=== PATIENT | female | born 1985 | race Caucasian/White ===

== ENCOUNTER 2017-10-01 23:06 | Observation (INO) | payer OTHER ==
[2017-10-02] MEDS ORDERED: ONDANSETRON 4 MG/2 ML VIAL ONE (00:03)
[2017-10-02] MEDS ORDERED: NA CHLORIDE 0.9% 1,000 ML ONE (00:03)
[2017-10-02 00:35] LABS: Calcium Oxalate Crystals- Ur FEW (NONE SEEN); Urine Bacteria <20 /HPF (<20); Urine Culture Reflex Order REFLEXED; Urine RBC <5 /HPF (NONE SEEN)
[2017-10-02 00:37] LABS: Hematocrit 33.8 % (36.0-45.0); MCH 24.9 pg (27.0-35.0); MCV 77.6 fL (80-100); MPV 8.3 fL (7.6-11.3); RBC Red Blood Cell Count 4.36 M/uL (3.86-4.86)
[2017-10-02 00:38] LABS: Urine Blood TRACE (NEG); Urine Glucose 1+ (NEG); Urine Protein 2+ (NEG); Urine Specific Gravity >1.030 (1.005-1.030); Urine pH 5.5 (5.0-7.0)
[2017-10-02 00:38] LABS: ALT/SGPT 56 U/L (12-78); AST/SGOT 63 U/L (15-37); Albumin 3.6 g/dL (3.4-5.0); Alkaline Phosphatase 113 U/L (45-117); Amylase Level 30 U/L (25-115); BUN Blood Urea Nitrogen 21 mg/dL (7-18); Bicarbonate 30 mmol/L (21-32); Bilirubin Direct < 0.1 mg/dL (0-0.2); Bilirubin Total 0.2 mg/dL (0.2-1.0); Glucose Level 117 mg/dL (74-106); Lipase 51 U/L (73-393); Potassium 4.1 mmol/L (3.5-5.1); Protein, Total 7.8 g/dL (6.4-8.2); Sodium Level 139 mmol/L (136-145)
[2017-10-02 00:59] LABS: Platelet Estimate ADEQ
[2017-10-02 01:00] LABS: Anisocytosis 1+; Blood Morphology Comment NOTED (NOT SEEN); Burr Cells FEW
[2017-10-02] MEDS ORDERED: KETOROLAC 30 MG/ML INJ ONE ×2 (01:00→12:53)
[2017-10-02] MEDS ORDERED: CEFTRIAXONE/SWI 1gm 1 GM/10 ML SYR ONE (01:23)
--- NOTE | 2017-10-02 01:24 | EDPHYS ---
Physician Documentation [facility] Name: Vicenta Vicente Age: 32 yrs Sex: Female : 1985 Arrival Date: 10/01/2017 Time: 23:07 Bed 25 Private MD: Jaya Torres ED Physician Conner Iyer HPI: 10/01 23:45 This 32 yrs old Female presents to ER via Ambulatory with complaints of cp Possible Kidney Stone. 23:45 The patient complains of pain in the right mid back. The pain radiates to the abdomen. cp Onset: The symptoms/episode began/occurred 5 day(s) ago. Associated signs and symptoms: Pertinent positives: nausea, vomiting, Pertinent negatives: diarrhea, fever, headache. Severity of pain: in the emergency department the pain is unchanged despite home interventions. 23:45 The patient has been recently seen by a physician: in [facility], with similar cp presenting complaints, and apparently given a diagnosis of kidney stone and discharged to home. 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 - Social history:: Smoking status: Patient/guardian denies using tobacco, never smoked. - Ebola Screening: : Patient negative for fever greater than or equal to 101.5 degrees Fahrenheit, and additional compatible Ebola Virus Disease symptoms Patient denies exposure to infectious person Patient denies travel to an Ebola-affected area in the 21 days before illness onset. ROS: 23:50 Constitutional: Negative for body aches, chills, fever, poor PO intake. cp 23:50 Eyes: Negative for injury, pain, redness, and discharge. cp 23:50 ENT: Negative for drainage from ear(s), ear pain, sore throat, difficulty swallowing, difficulty handling secretions. 23:50 Cardiovascular: Negative for chest pain, edema. 23:50 Respiratory: Negative for cough, shortness of breath, wheezing. 23:50 Abdomen/GI: Positive for abdominal pain, nausea, vomiting, Negative for diarrhea, constipation. 23:50 Back: Positive for flank pain, on the right. 23:50 : Negative for burning with urination. 23:50 Skin: Negative for cellulitis, rash. 23:50 Neuro: Negative for altered mental status, headache, weakness. 23:50 All other systems are negative. Exam: 23:57 Constitutional: The patient appears in no acute distress, alert, awake, cp non-diaphoretic, non-toxic, well developed, well nourished, uncomfortable. 23:57 Head/Face: Normocephalic, atraumatic. cp 23:57 Eyes: Periorbital structures: appear normal, Conjunctiva: normal, no exudate, no injection, Sclera: no appreciated abnormality, Lids and lashes: appear normal, bilaterally. 23:57 ENT: External ear(s): are unremarkable, Nose: is normal, Mouth: Lips: moist, Oral mucosa: pink and intact, moist, Posterior pharynx: is normal, airway is patent, no erythema, no exudate. 23:57 Chest/axilla: Inspection: normal, Palpation: is normal, no crepitus, no tenderness. 23:57 Cardiovascular: Rate: normal, Rhythm: regular. 23:57 Respiratory: the patient does not display signs of respiratory distress, Respirations: normal, no use of accessory muscles, no retractions, no splinting, no tachypnea, Breath sounds: are clear throughout, no decreased breath sounds, no stridor, no wheezing. 23:57 Abdomen/GI: Inspection: abdomen appears normal, Bowel sounds: active, all quadrants, Palpation: soft, in all quadrants, moderate abdominal tenderness, in the right upper quadrant and right lower quadrant, rebound tenderness, is not appreciated, involuntary guarding, is not appreciated. 23:57 Back: CVA tenderness, is noted on the right. 23:57 Skin: cellulitis, is not appreciated, no rash present. 23:57 Neuro: Orientation: to person, place \T\ time. Mentation: lucid, able to follow commands, Cerebellar function: is grossly normal, Motor: moves all fours, strength is normal, Sensation: no obvious gross deficits. Vital Signs: 23:54 BP 132 / 94; Pulse 62; Pulse Ox 100% on R/A; Weight 47.63 kg; Height 5 ft. 5 in. rv (165.10 cm) (R); 10/02 01:01 BP 125 / 100; Pulse 71; Pulse Ox 99% on R/A; rv 03:06 BP 128 / 77; Pulse 86; Pulse Ox 99% on R/A; rv 10/01 23:54 Body Mass Index 17.47 (47.63 kg, 165.10 cm) rv MDM: 10/01 23:30 Patient medically screened. 10/02 00:00 Differential diagnosis: nephrolithiasis, pyelonephritis, UTI, sepsis. cp 01:21 Data reviewed: vital signs, nurses notes, lab test result(s), radiologic studies, CT cp scan. Physician consultation: Samara Henley MD was called at 01:21, was contacted at 01:21, regarding admission, to the medical/surgical unit. 10/01 23:30 Order name: Urine Microscopic Only; Complete Time: 00:56 cp 10/02 00:57 Interpretation: Normal except: UWBC 5-10. cp 10/01 23:38 Order name: Amylase, Serum; Complete Time: 00:56 cp 10/01 23:38 Order name: Basic Metabolic Panel; Complete Time: 00:56 cp 10/02 00:57 Interpretation: Normal except: GLUC 117; BUN 21; GFR 53. cp 10/01 23:38 Order name: CBC with Diff; Complete Time: 01:10 cp 10/02 01:19 Interpretation: Normal except: HGB 10.9; HCT 33.8; MCV 77.6; MCH 24.9; RDW 20.0. cp 10/01 23:38 Order name: Creatinine for Radiology; Complete Time: 00:56 cp 10/01 23:38 Order name: Hepatic Function; Complete Time: 00:56 cp 10/02 00:57 Interpretation: Normal except: AST 63; GLOB 4.2; A/G 0.9. cp 10/01 23:38 Order name: CT Stone Protocol cp 10/01 23:38 Order name: Lipase; Complete Time: 00:56 cp 10/02 00:57 Interpretation: LIP 51; Reviewed. cp 10/02 00:03 Order name: Urine Dipstick--Ancillary (enter results); Complete Time: 00:56 ms 10/02 00:57 Interpretation: Normal except: UGLUC 1+; UBLD TRACE; UPROT 2+. cp 10/02 00:03 Order name: Urine --Ancillary (enter results); Complete Time: 00:56 ms 10/02 00:37 Order name: Urine Culture EDAK 10/02 00:59 Order name: Manual Differential; Complete Time: 01:10 EDAK 10/01 23:30 Order name: Urine Dipstick-Ancillary (obtain specimen); Complete Time: 00:18 10/01 23:30 Order name: Urine Test (obtain specimen); Complete Time: 00:18 10/01 23:38 Order name: IV Saline Lock; Complete Time: 00:18 10/01 23:38 Order name: Labs collected and sent; Complete Time: 00:18 10/02 01:28 Order name: CONS Physician Consult EDMS Administered Medications: 00:10 Drug: TORadol 30 mg Route: IVP; Site: left antecubital; rv 01:22 Follow up: Response: Pain is unchanged, physician notified rv 00:10 Drug: Zofran 4 mg Route: IVP; Site: left antecubital; rv 01:22 Follow up: Response: No adverse reaction rv 00:10 Drug: NS 0.9% 1000 ml Route: IV; Rate: 1 bolus; Site: left antecubital; rv 03:05 Follow up: IV Status: Completed infusion rv 01:22 Drug: Rocephin 1 grams Route: IV; Rate: calculated rate; Site: left antecubital; rv 03:05 Follow up: Response: No adverse reaction rv 01:44 Drug: Magnesium Sulfate 1 grams Route: IVPB; Infused Over: 1 hrs; Site: left rv antecubital; 03:05 Follow up: Response: No adverse reaction; IV Status: Completed infusion rv 01:44 Drug: fentaNYL (PF) 25 mcg Route: IVP; Site: left antecubital; rv 03:05 Follow up: Response: No adverse reaction; Pain is decreased rv Disposition: 04:19 Co-signature as Attending Physician, Conner Iyer MD. rn Disposition: 10/02/17 01:23 Hospitalization ordered by Samara Henley for Observation. Preliminary diagnosis is Calculus of ureter - Right. - Bed requested for Telemetry/MedSurg (observation). - Status is Observation. bb - Condition is Stable. - Problem is an ongoing problem. - Symptoms are unchanged. UTI on Admission? No Signatures: Dispatcher [employer] EDMS Mell Gomez RN RN kl Lucy Chacko RN RN bb Conner Iyer MD MD rn Page, Corey, PA PA cp Hamzah Fields RN RN rv Corrections: (The following items were deleted from the chart) 00:06 00:04 This 32 yrs old Female presents to ER via Ambulatory with complaints of cp Possible Kidney Stone. cp 02:45 01:23 Hospitalization Ordered by Samara Henley MD for Observation. Preliminary kl diagnosis is Calculus of ureter - Right. Bed requested for Telemetry/MedSurg (observation). Status is Observation. Condition is Stable. Problem is an ongoing problem. Symptoms are unchanged. UTI on Admission? No. cp 02:45 02:45 10/02/2017 01:23 Hospitalization Ordered by Samara Henley MD for Observation. kl Preliminary diagnosis is Calculus of ureter - Right. Bed requested for Telemetry/MedSurg (observation). Status is Observation. Condition is Stable. Problem is an ongoing problem. Symptoms are unchanged. UTI on Admission? No. kl 03:01 02:45 10/02/2017 01:23 Hospitalization Ordered by Samara Henley MD for Observation. bb Preliminary diagnosis is Calculus of ureter - Right. Bed requested for Telemetry/MedSurg (observation). Status is Observation. Condition is Stable. Problem is an ongoing problem. Symptoms are unchanged. UTI on Admission? No. kl
--- NOTE | 2017-10-02 01:24 | ER ---
Nurse's Notes [facility] Name: Vicenta Vicente Age: 32 yrs Sex: Female : 1985 Arrival Date: 10/01/2017 Time: 23:07 Bed 25 Private MD: Jaya Torres Diagnosis: Calculus of ureter-Right Presentation: 10/01 23:49 Presenting complaint: Patient states: "I STARTED FEELING FLANK PAINS SINCE TUESDAY. I rv WENT TO CONSULT LAST TUESDAY AND SINCE THEN THE PAIN HASN'T STOPPED.". Transition of care: patient was not received from another setting of care. Onset of symptoms was September 26, 2017 at 08:00. Risk Assessment: Do you want to hurt yourself or someone else? Patient reports no desire to harm self or others. Initial Sepsis Screen: Does the patient meet any 2 criteria? No. Patient's initial sepsis screen is negative. Does the patient have a suspected source of infection? No. Patient's initial sepsis screen is negative. Care prior to arrival: None. 23:49 Method Of Arrival: Ambulatory rv 23:49 Acuity: JOHN 3 rv Triage Assessment: 23:54 General: Appears in no apparent distress. uncomfortable, Behavior is calm, cooperative. rv Pain: Complains of pain in back Pain currently is 9 out of 10 on a pain scale. GI: Abdomen is flat, non-distended. 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 - Social history:: Smoking status: Patient/guardian denies using tobacco, never smoked. - Ebola Screening: : Patient negative for fever greater than or equal to 101.5 degrees Fahrenheit, and additional compatible Ebola Virus Disease symptoms Patient denies exposure to infectious person Patient denies travel to an Ebola-affected area in the 21 days before illness onset. Screenin:58 Abuse screen: Denies threats or abuse. Denies injuries from another. Nutritional rv screening: No deficits noted. Tuberculosis screening: No symptoms or risk factors identified. Fall Risk None identified. Assessment: 23:56 General: Appears in no apparent distress. comfortable, uncomfortable, Behavior is calm, rv cooperative. Pain: Complains of pain in back Pain currently is 9 out of 10 on a pain scale. Neuro: Level of Consciousness is awake, alert, obeys commands, Oriented to person, place, time, situation. Cardiovascular: Heart tones S1 S2 present. Respiratory: Airway is patent. GI: Bowel sounds present X 4 quads. Abd is soft and non tender. : No signs and/or symptoms were reported regarding the genitourinary system. EENT: No signs and/or symptoms were reported regarding the EENT system. Derm: Skin is intact. 10/02 01:02 Reassessment: Patient appears in no apparent distress at this time. Patient and/or rv family updated on plan of care and expected duration. Pain level reassessed. Patient is alert, oriented x 3, equal unlabored respirations, skin warm/dry/pink. Vital Signs: 10/01 23:54 BP 132 / 94; Pulse 62; Pulse Ox 100% on R/A; Weight 47.63 kg; Height 5 ft. 5 in. rv (165.10 cm) (R); 10/02 01:01 BP 125 / 100; Pulse 71; Pulse Ox 99% on R/A; rv 03:06 BP 128 / 77; Pulse 86; Pulse Ox 99% on R/A; rv 10/01 23:54 Body Mass Index 17.47 (47.63 kg, 165.10 cm) rv ED Course: 10/01 23:07 Patient arrived in ED. es 23:07 Jaya Torres MD is Private Physician. es 23:30 Jaya Kidd PA is PHCP. cp 23:30 Conner Iyer MD is Attending Physician. cp 23:51 Triage completed. rv 23:58 Arm band placed on right wrist. rv 23:58 Patient has correct armband on for positive identification. Bed in low position. Call rv light in reach. Side rails up X 1. Adult w/ patient. Pulse ox on. NIBP on. 10/02 00:10 Inserted saline lock: 20 gauge in left antecubital area, using aseptic technique. rv 00:[address] via stretcher. kw1 00:29 CT Stone Protocol In Process Unspecified. EDMS 00:29 CT completed. Patient tolerated procedure well. Patient moved back from CT. kw1 00:59 Urine Culture Sent. rv 01:22 Samara Henley MD is Hospitalizing Provider. cp 02:52 No provider procedures requiring assistance completed. Patient admitted, IV remains in rv place. intact. Administered Medications: 00:10 Drug: TORadol 30 mg Route: IVP; Site: left antecubital; rv 01:22 Follow up: Response: Pain is unchanged, physician notified rv 00:10 Drug: Zofran 4 mg Route: IVP; Site: left antecubital; rv 01:22 Follow up: Response: No adverse reaction rv 00:10 Drug: NS 0.9% 1000 ml Route: IV; Rate: 1 bolus; Site: left antecubital; rv 03:05 Follow up: IV Status: Completed infusion rv 01:22 Drug: Rocephin 1 grams Route: IV; Rate: calculated rate; Site: left antecubital; rv 03:05 Follow up: Response: No adverse reaction rv 01:44 Drug: Magnesium Sulfate 1 grams Route: IVPB; Infused Over: 1 hrs; Site: left rv antecubital; 03:05 Follow up: Response: No adverse reaction; IV Status: Completed infusion rv 01:44 Drug: fentaNYL (PF) 25 mcg Route: IVP; Site: left antecubital; rv 03:05 Follow up: Response: No adverse reaction; Pain is decreased rv Outcome: 01:23 Decision to Hospitalize by Provider. cp 02:52 Admitted to Tele accompanied by tech, via wheelchair, room 420, with chart, Report rv called to shey 02:52 Condition: stable 02:52 Instructed on the need for admit. 03:01 Patient left the ED. bb Signatures: Dispatcher [employer] Henny Rose Brenda, RN RN bb Jaya Kidd PA PA cp Wilhelm, Kimberly kw1 Hamzah Fields, FELICIANO RN rv
[2017-10-02] MEDS ORDERED: FENTANYL CITR 100 MCG/2 ML ONE ×2 (01:31→12:53)
[2017-10-02] MEDS ORDERED: Magnesium Sulfate 1gm IVPB 1 GM/50 ML BAG IV ONE (01:42)
--- NOTE | 2017-10-02 02:38 | P.HP ---
Certification for Inpatient Patient admitted to: Observation With expected LOS: <2 Midnights Practitioner: I am a practitioner with admitting privileges, knowledge of patient current condition, hospital course, and medical plan of care. Services: Services provided to patient in accordance with Admission requirements found in Title 42 Section 412.3 of the Code of Federal Regulations Patient History Date of Service: 10/02/17 Reason for admission: hydronephrosis History of Present Illness: Ms Vicente is a 32 years old woman with history of stomach cancer s/p stomach, pancreas and liver lobe removed, came to ED complaining of progressive right flank pain associated with nausea. She denied fever or chills. Her pain was getting worse over the time. She has had this kind of symptoms in the past. Lab work WBC 10.5K. CT abd/pelvis shows moderate to severe right ureteral 7 mm stone. Allergies No Known Allergies Allergy (Verified 04/27/15 10:17) Home medications list reviewed: Yes Home Medications: Acarbose 25 mg PO AC PRN 04/27/15 Imatinib Mesylate [Gleevec] 400 mg PO DAILY 04/27/15 LORazepam [Ativan] 2 mg PO BEDTIME PRN PRN 04/27/15 Methylphenidate HCl [Ritalin] 10 mg PO BID 04/27/15 Ondansetron HCl [Zofran] 8 mg PO Q4H PRN 04/27/15 Promethazine Syrup [Phenergan*] 2.5 ml PO Q4H PRN 04/27/15 - Past Medical/Surgical History Diabetic: No -: hypoglycemic -: gastrointestional stromal tummors. - a type of cancer -: [employer] -: stomach removal. rebuilt as a 'J' pouch -: removal of pancreases, -: lobeectomy of liver -: lung surg -: left broken thumb - Family History Father -: Cancer - Social History Alcohol use: No CD- Drugs: No Place of Residence: Home Review of Systems 10-point ROS is otherwise unremarkable Physical Examination - Physical Exam General: Alert, In no apparent distress HEENT: Atraumatic, PERRLA, Mucous membr. moist/pink, EOMI, Sclerae nonicteric Neck: Supple, 2+ carotid pulse no bruit, No LAD, Without JVD or thyroid abnormality Respiratory: Clear to auscultation bilaterally, Normal air movement Cardiovascular: Regular rate/rhythm, Normal S1 S2 Gastrointestinal: Normal bowel sounds, Tenderness (right lower quadrant) Musculoskeletal: No tenderness Integumentary: No rashes Neurological: Normal speech, Normal strength at 5/5 x4 extr, Normal tone, Normal affect Lymphatics: No axilla or inguinal lymphadenopathy - Studies Laboratory Data (last 24 hrs) 10/02/17 00:10: Creatinine 1.30 10/02/17 00:10: WBC 10.5, Hgb 10.9 L, Hct 33.8 L, Plt Count 351 10/02/17 00:10: Sodium 139, Potassium 4.1, BUN 21 H, Creatinine 1.20, Glucose 117 H, Total Bilirubin 0.2, AST 63 H, ALT 56, Alkaline Phosphatase 113, Amylase 30, Lipase 51 L Assessment and Plan - Problems (Diagnosis) (1) Hydronephrosis Current Visit: Yes Status: Acute Qualifiers: Hydronephrosis type: with renal calculous obstruction Qualified Code(s): N13.2 - Hydronephrosis with renal and ureteral calculous obstruction (2) Ureterolithiasis Current Visit: Yes Status: Acute - Plan The patient will be admitted to the hospital due to right moderate to severe hydronephrosis. She has a 7 mm right obstructing ureteral stone. Dr Allison consulted. Continue symptomatic medication, IV fluids, prophylactic antibiotic. - Advance Directives Does patient have a Living Will: No Does patient have a Durable POA for Healthcare: No - Code Status/Comfort Care Code Status Assessed: Yes Code Status: Full Code
[2017-10-02] MEDS ORDERED: ACETAMINOPHEN 500 MG TAB PO PRN (03:06)
[2017-10-02] MEDS ORDERED: ONDANSETRON 4 MG/2 ML VIAL IV PRN (03:06)
[2017-10-02] MEDS ORDERED: KETOROLAC 30 MG/ML INJ IV PRN (03:06)
[2017-10-02] MEDS: NA CHLORIDE 0.9% 1,000 ML IV SCH ×2 (03:30→13:06)
[2017-10-02] MEDS ORDERED: CEFTRIAXONE/SWI 1gm 1 GM/10 ML SYR IVP SCH (09:00)
[2017-10-02] MEDS ORDERED: CEFTRIAXONE 1 GM/NS 50 ML 1 GM/50 ML BAG IV SCH (09:00)
--- NOTE | 2017-10-02 09:55 | RAD REPORT ---
EXAM DESCRIPTION: CT - Stone Protocol - 10/02/2017 6:41 am CLINICAL HISTORY: Abdominal pain. Flank pain COMPARISON: September 2016 TECHNIQUE: Computed axial tomography of the abdomen pelvis was obtained without oral or IV contrast. Lack of IV and oral contrast limits evaluation of solid organs, bowel, and vessels. Coronal reformat cesia images were obtained and reviewed. .A preliminary report was generated by [email or web address] and reviewed prior to this dictation All CT scans are performed using dose optimization technique as appropriate and may include automated exposure control or mA/KV adjustment according to patient size. FINDINGS: Small bilateral renal calculi are present. Moderate to marked right hydronephrosis and rig ht hydroureter are seen. 7 millimeter calculus Hounsfield unit 1548 spur is present within the mid to distal right ureter A 9 millimeter low-density lesion is present within the dome of the liver without significant change from the prior exam. It has developed since 2013. The left lobe of the liver is prominent Postsurgical changes involve the pancreas and stomach. The spleen has been removed. There is no evidence of diverticulitis. The appendix appears normal. The evaluation of bowel versus potential mass is limited secondary to lack of IV and oral contrast An IUD and tampon are in place IMPRESSION: 7 millimeter calculus mid to distal right ureter resulting in moderate to marked right h ydronephrosis 7 millimeter nonspecific lesion within the dome of the liver
[2017-10-02] MEDS ORDERED: MORPHINE 4 MG/ML SYR IV ONE (11:00)
[2017-10-02] MEDS ORDERED: Ringers Lactate 1,000 ML IV ONE (12:46)
[2017-10-02] MEDS ORDERED: PROPOFOL 200 MG/20 ML VIAL IV ONE (12:52)
[2017-10-02] MEDS ORDERED: LIDOCAINE 1% MPF 5 ML VIAL ONE (12:53)
[2017-10-02] MEDS ORDERED: MIDAZOLAM HCL 2 MG/2 ML INJ ONE (12:53)
[2017-10-02] MEDS ORDERED: MEPERIDINE HCL 50 MG/ML AMP ONE (14:15)
[2017-10-02] MEDS ORDERED: PROMETHAZINE 25 MG/ML VIAL ONE (14:19)
--- NOTE | 2017-10-03 01:28 | OP ---
Surgeon: Kelin Allison MD Anesthesiologist: Dr. Lopez. Preoperative Diagnosis: Right distal ureteral stone, 7 mm; bilateral lower calyx stones in the kidne y. Postoperative Diagnosis: Right distal ureteral stone, 7 mm; bilateral lower calyx stones in the kidn ey; plus impacted right distal stone. Procedure Performed: Cystoscopy with 30 and 70-degree lens, right retrograde pyelogram, insertion of 6-Thai x 28 cm right double-J stent. Anesthesia: General. Ebl: Minimal. Replacement: See record. Path Specimen: None. Complication: Impacted stone. It was very difficult to pass the ureteral catheter by and also the s tent, so we decided to go ahead and culture the urine from the right renal pelvis. There was some ju nky material that came out. Make sure there was no infection. Leave the stent in for at least a wee k to drain, keep on antibiotics for now, and come back another time for possible ESWL versus ureteros copy. Indication: Pleasant 32-year-old female, history of gastric cancer, came in with right distal ureter al stone, renal colic, and a slightly elevated white count. No fevers. She was given all the genera l information, alternatives, and risks. Her plan was to do cystoscopy, right retrograde ureteroscopy , stone basket, and stent placement. Her stone was found to be impacted. She was given all general information, alternatives, and risks prior. After she was taken to the operative suite, placed in a supine position, prepped and draped, cystoscopy was done and 30 and a 70-degree lens did not show any tumors in the bladder or urethra. Retrograde showed a stone just below the inferior iliac bone abou t 7 mm. Dye did get around it, but it was difficult to pass the Bentson wire. We had to use a Trego wire to get by the stone, then we exchanged it for regular Bentson wire. Ureteral catheter was very difficult to pass the stone, it was very impacted, so we decided to place the stent instead of doing ureteroscopy. We will leave the stent in for some passive dilation instead of forcibly doing dilatio n ureteroscopy today. This may be a lot easier in her ureter, unless risk of ureteral stricture in t he future. Also the urine did appear junky, so a culture was sent and we will wait for the final cul ture before proceeding with definitive therapy. Procedure was terminated. She went to recovery room in stable condition. No untoward effects occurred. She can go home later today. I have written pr escription for pain medication, Ultram, Ditropan 10 mg, and Macrobid 50 mg prevention once a day. Sh e is to follow up in the office in a week. HEMALATHA/CHANCE Voice ID: [id number] Report ID: [id number]
--- NOTE | 2017-10-03 08:53 | CON ---
History Of Present Illness: This is a pleasant 32-year-old female who came in with a history of right flank pain. She has a history of stomach cancer, stomach stromal tumor status post resection at [facility], partial pancreatectomy and liver lobe removed. She had flank pain and nausea. CAT scan showed moderate right hydronephrosis with hydroureter down to the right distal ureter with a 7 mm stone in the right distal ureter. Hounsfield units 1500 units. Also showed 2 small stones in the right lower pole measuring 2-3 mm each and a small stone in the left lower pole. She does not have an IUD present also. The patient was admitted overnight for pain control. Allergies: NO KNOWN DRUG ALLERGIES. Home Medication: Acarbose 25 mg p.o. q.a.c., Gleevec, Ativan, Ritalin, Zofran, Phenergan. Past Medical And Surgical History: No diabetes, history of hypoglycemia, gastrointestinal stroma tumor, _ J-pouch, partial removal of pancreas, lobectomy of liver, lung surgery, _. Family History: Father had a history of cancer. Social History: No smoking. No drug use. Resides at home. Review of Systems: Ten-point review of system is otherwise unremarkable. Physical Examination: Vital Signs: 98.26, pulse 70, respirations 20, BP 121/73, saturation 98%. General: Alert, oriented, in no distress. Two family members present in the room, 1 was a lady, another one was a beto. HEENT: Atraumatic, normocephalic. Neck: Supple. Respiratory: Clear. Cardiovascular: Normal S1, S2. Gastrointestinal: Normal bowel sounds. Musculoskeletal: No tenderness. Skin: No rashes. Neurologic: Normal. Lymphatics: Normal. Laboratory Studies: White count 10, H and H 11 and 34, platelet 351. Chemistry shows sodium 139, potassium 4.1, chloride 100, carbon dioxide 20, BUN 21, creatinine 1.2. GFR estimated to be 53. Glucose 117, calcium 9.2. Liver, AST 63, ALT 53. Urine test showed pH 5.5, specific gravity 10/30, nitrate negative, blood trace, white cells 5-10, rbc less than 5. negative. Assessment: A 7 mm stone in the right lower ureter causing discomfort. Plan: Plan is for cystoscopy, balloon dilation of ureter, attempted stone basket possibly, EHL, and insertion of double-J stents. All the general information, alternatives, and risks were given. The patient wishes to proceed. HEMALATHA/CHANCE Voice ID: [id number] Report ID: [id number] MTDD
--- NOTE | 2017-10-03 16:10 | RAD REPORT ---
EXAM DESCRIPTION: RAD - Urethrocystogrphy Retrograde - 10/03/2017 2:03 pm CLINICAL HISTORY: ICD N 20.0 FINDINGS: One fluoroscopic spot image is submitted. Fluoroscopy time 1.4 minutes. The right ureter was cannulated and contrast administered. A right ureteral stent was subsequently pl aced. Exam was performed by Dr. Allison. Please refer to his report for additional findings
== END 2017-10-02 18:31 | disposition home or self-care (01) ==
LOC: ER 23:06 → ERHOLD 10-02 01:25 → 4TH 10-02 02:40
PROVIDERS: ADMIT Internal Medicine; ATTEND Family Medicine
PROC: 0T768DZ Dilation of Right Ureter with Intraluminal Device, Via Natural or Artificial Opening Endoscopic (ICD-10-PCS; principal; 2017-10-02 13:00)
DX: N13.2 Hydronephrosis with renal and ureteral calculous obstruction (principal); Z85.028 Personal history of other malignant neoplasm of stomach; Z85.07 Personal history of malignant neoplasm of pancreas; Z85.05 Personal history of malignant neoplasm of liver
CPT/HCPCS: 36415; 51610; 52332; 74176; 74450; 76377; 80048; 80076; 81003; 81015; 81025; 82150; 83690; 85025; 87086; 87088 ×2; 96361; 96365; 96375; 99285; J0696 ×2; J2175; J2250; J2405 ×2; J2550; J3010 ×2; J3475; J7030 ×2; Q9967

== ENCOUNTER 2017-11-11 19:04 | Emergency (ER) | payer OTHER, SELFPAY ==
[2017-11-11 19:59] LABS: Urine Blood 3+ (NEG); Urine Glucose 2+ (NEG); Urine Protein 2+ (NEG); Urine Specific Gravity 1.025 (1.005-1.030)
[2017-11-11 20:04] LABS: Urine Bacteria <20 /HPF (<20); Urine Culture Reflex Order NOT NEEDED; Urine RBC >50 /HPF (NONE SEEN)
[2017-11-11] MEDS ORDERED: NA CHLORIDE 0.9% 1,000 ML ONE (21:14)
[2017-11-11] MEDS ORDERED: FENTANYL CITR 100 MCG/2 ML ONE (21:14)
[2017-11-11] MEDS ORDERED: CEFTRIAXONE/SWI 1gm 1 GM/10 ML SYR ONE (21:14)
[2017-11-11] MEDS ORDERED: ONDANSETRON 4 MG/2 ML VIAL ONE (21:14)
--- NOTE | 2017-11-11 21:17 | ER ---
Nurse's Notes [facility] Name: Vicenta Vicente Age: 32 yrs Sex: Female : 1985 Arrival Date: 11/11/2017 Time: 19:05 Bed 28 Private MD: Jaya Torres Diagnosis: Hydronephrosis with renal and ureteral calculous obstruction-double j stent on right;Urinary tract infection, site not specified Presentation: 11/11 19:09 Presenting complaint: Patient states: I had a stent placed in my right kidney about a tl2 month ago for a kidney stone and it's really bothering me. Reports urinary frequency and urgency but not producing much urine. Denies fever. Transition of care: patient was not received from another setting of care. Onset of symptoms was November 09, 2017. Risk Assessment: Do you want to hurt yourself or someone else? Patient reports no desire to harm self or others. Initial Sepsis Screen: Does the patient meet any 2 criteria? No. Patient's initial sepsis screen is negative. Does the patient have a suspected source of infection? No. Patient's initial sepsis screen is negative. Care prior to arrival: None. 19:09 Method Of Arrival: Ambulatory tl2 19:09 Acuity: JOHN 3 tl2 Triage Assessment: 19:12 General: Appears in no apparent distress. uncomfortable, Behavior is calm, cooperative, tl2 appropriate for age. Pain: Complains of pain in right flank. 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 - Social history:: Smoking status: Patient/guardian denies using tobacco. - Ebola Screening: : No symptoms or risks identified at this time. - Family history:: not pertinent. Screenin:00 Fall Risk None identified. cr4 23:05 Abuse screen: Denies threats or abuse. Nutritional screening: No deficits noted. cr4 Tuberculosis screening: No symptoms or risk factors identified. Assessment: 20:45 General: Appears uncomfortable, slender, well groomed, Behavior is calm, cooperative, cr4 appropriate for age. Pain: Complains of pain in lower abd Pain does not radiate. Pain currently is 9 out of 10 on a pain scale. Quality of pain is described as aching, Pain began gradually, Is continuous, Aggravated by eating. Neuro: No deficits noted. Denies weakness blurred vision numbness headache. Cardiovascular: No deficits noted. Denies chest pain, fatigue, lightheadedness. Respiratory: No deficits noted. Respiratory effort is even, unlabored. GI: Patient currently denies diarrhea, nausea, vomiting. : Reports urinary frequency, hematuria since yesterday. EENT: No deficits noted. Derm: No deficits noted. Musculoskeletal: No deficits noted. 21:45 Reassessment: Patient and/or family updated on plan of care and expected duration. Pain cr4 level reassessed. attempting to get IV several attempts made, patient tolerated well and was very cooperative.. 22:30 Reassessment: No changes from previously documented assessment. Patient is alert, cr4 oriented x 3, equal unlabored respirations, skin warm/dry/pink. Patient states feeling better. Patient states symptoms have improved. 23:20 Reassessment: Patient and/or family updated on plan of care and expected duration. Pain cr4 level reassessed. Patient is alert, oriented x 3, equal unlabored respirations, skin warm/dry/pink. Patient states feeling better. Vital Signs: 19:12 BP 118 / 79; Pulse 73; Resp 18; Temp 97.6; Pulse Ox 100% on R/A; Weight 48.99 kg; tl2 Height 5 ft. 5 in. (165.10 cm); Pain 9/10; 22:00 BP 131 / 99 RA Sitting (auto/reg); Pulse 77 MON; Resp 19 S; Pulse Ox 99% on R/A; jp3 23:00 BP 130 / 89; Pulse 70; Resp 16; Pulse Ox 100% ; Pain 0/10; cr4 19:12 Body Mass Index 17.97 (48.99 kg, 165.10 cm) tl2 ED Course: 19:05 Patient arrived in ED. es 19:08 Jaya Torres MD is Private Physician. es 19:10 Triage completed. tl2 19:12 Arm band placed on right wrist. tl2 20:31 CT Stone Protocol In Process Unspecified. EDMS 20:37 Jaya Hendricks MD is Attending Physician. maggie 20:37 Urine Culture Sent. jp3 20:55 Patient moved to radiology via wheelchair. sw 20:55 X-ray completed. Patient tolerated procedure well. sw 20:55 Patient moved back from radiology. sw 20:56 Abdomen 1 View (KUB) XRAY In Process Unspecified. EDMS 21:15 Kelin Allison MD is Referral Physician. maggie 21:30 Missed attempt(s): 24 gauge in right hand. forearm. antecubital area. jp3 21:40 Notified ED physician of other unable to get IV after several attemps. cr4 22:00 Patient has correct armband on for positive identification. Side rails up X2. cr4 22:15 Diet: Patient given ice chips. Patient given water. jp3 23:15 IV discontinued, bleeding controlled, No redness/swelling at site. Pressure dressing cr4 applied. 11/12 00:22 No provider procedures requiring assistance completed. cr4 Administered Medications: 11/11 21:35 Not Given (Duplicate Order): Rocephin - (cefTRIAXone) 1 grams IVPB once over 30 mins; maggie (mix in 50 mL NS) 21:46 CANCELLED (Duplicate Order): Rocephin (cefTRIAXone) 1 grams IM once maggie 22:00 Drug: Zofran 4 mg Route: IVP; Site: left antecubital; cr4 22:30 Follow up: Response: No adverse reaction cr4 22:00 Drug: Rocephin - (cefTRIAXone) 1 grams Route: IVPB; Infused Over: 30 mins; Site: left cr4 antecubital; 22:35 Follow up: Response: No adverse reaction cr4 22:01 Drug: NS 0.9% 1000 ml Route: IV; Rate: 1 bolus; Site: left antecubital; cr4 23:05 Follow up: IV Status: Completed infusion; IV Intake: 1000ml cr4 22:01 Drug: fentaNYL (PF) 25 mcg Route: IVP; Site: left antecubital; cr4 22:30 Follow up: Response: Pain is decreased cr4 22:02 Not Given (changed to iv antibiotic): Cipro 500 mg PO once cr4 23:15 Drug: Cipro 500 mg Route: PO; cr4 23:30 Follow up: Response: No adverse reaction cr4 Intake: 23:05 IV: 1000ml; Total: 1000ml. cr4 Outcome: 21:16 Discharge ordered by . maggie 23:36 Patient left the ED. cr4 23:36 Discharged to home ambulatory, with family. cr4 23:36 Condition: stable 23:36 Discharge instructions given to patient, family, Instructed on discharge instructions, follow up and referral plans. medication usage, Demonstrated understanding of instructions, follow-up care, medications, Prescriptions given X 2. Signatures: Dispatcher [employer] Jaya Rivero MD MD cha Salyer, Edna es Ruiz, Claudia RN RN cr4 Jackie Salguero Taylor, RN RN tl2 Sourav Quezada jp3
--- NOTE | 2017-11-11 21:17 | EDPHYS ---
Physician Documentation [facility] Name: Vicenta Vicente Age: 32 yrs Sex: Female : 1985 Arrival Date: 11/11/2017 Time: 19:05 Bed 28 Private MD: Jaya Torres ED Physician Jaya Hendricks HPI: 11/11 21:12 This 32 yrs old Female presents to ER via Ambulatory with complaints of maggie Problem with stent for kidney stone. 21:12 The patient complains of pain in the right mid back and right low back. The pain maggie radiates to the right mid back and right low back. Onset: The symptoms/episode began/occurred 2 day(s) ago. Modifying factors: The symptoms are alleviated by the symptoms are aggravated by nothing. The patient presents with flank pain, urinary symptoms, dysuria, frequency, hematuria, urgency. Onset: The symptoms/episode began/occurred 3 day(s) ago. Modifying factors: The symptoms are alleviated by nothing, the symptoms are aggravated by nothing. Associated signs and symptoms: The patient has no apparent associated signs or symptoms. Associated signs and symptoms: Pertinent positives: nausea. Severity of symptoms: At their worst the symptoms were mild, moderate, in the emergency department the symptoms are unchanged. 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 - Social history:: Smoking status: Patient/guardian denies using tobacco. - Ebola Screening: : No symptoms or risks identified at this time. - Family history:: not pertinent. ROS: 21:12 Constitutional: Negative for fever, chills, and weight loss, Eyes: Negative for injury, maggie pain, redness, and discharge, ENT: Negative for injury, pain, and discharge, Neck: Negative for injury, pain, and swelling, Cardiovascular: Negative for chest pain, palpitations, and edema, Respiratory: Negative for shortness of breath, cough, wheezing, and pleuritic chest pain, Abdomen/GI: Negative for abdominal pain, nausea, vomiting, diarrhea, and constipation, : Negative for injury, bleeding, discharge, and swelling, MS/Extremity: Negative for injury and deformity, Skin: Negative for injury, rash, and discoloration, Neuro: Negative for headache, weakness, numbness, tingling, and seizure, Psych: Negative for depression, anxiety, suicide ideation, homicidal ideation, and hallucinations, Allergy/Immunology: Negative for hives, rash, and allergies, Endocrine: Negative for neck swelling, polydipsia, polyuria, polyphagia, and marked weight changes, Hematologic/Lymphatic: Negative for swollen nodes, abnormal bleeding, and unusual bruising. 21:12 Back: Positive for pain at rest, flank pain, on the right. Exam: 21:12 Constitutional: This is a well developed, well nourished patient who is awake, alert, maggie and in no acute distress. Head/Face: Normocephalic, atraumatic. Eyes: Pupils equal round and reactive to light, extra-ocular motions intact. Lids and lashes normal. Conjunctiva and sclera are non-icteric and not injected. Cornea within normal limits. Periorbital areas with no swelling, redness, or edema. ENT: Nares patent. No nasal discharge, no septal abnormalities noted. Tympanic membranes are normal and external auditory canals are clear. Oropharynx with no redness, swelling, or masses, exudates, or evidence of obstruction, uvula midline. Mucous membranes moist. Neck: Trachea midline, no thyromegaly or masses palpated, and no cervical lymphadenopathy. Supple, full range of motion without nuchal rigidity, or vertebral point tenderness. No Meningismus. Chest/axilla: Normal chest wall appearance and motion. Nontender with no deformity. No lesions are appreciated. Cardiovascular: Regular rate and rhythm with a normal S1 and S2. No gallops, murmurs, or rubs. Normal PMI, no JVD. No pulse deficits. Respiratory: Lungs have equal breath sounds bilaterally, clear to auscultation and percussion. No rales, rhonchi or wheezes noted. No increased work of breathing, no retractions or nasal flaring. Abdomen/GI: Soft, non-tender, with normal bowel sounds. No distension or tympany. No guarding or rebound. No evidence of tenderness throughout. Back: No spinal tenderness. No costovertebral tenderness. Full range of motion. Female : Normal external genitalia. Skin: Warm, dry with normal turgor. Normal color with no rashes, no lesions, and no evidence of cellulitis. MS/ Extremity: Pulses equal, no cyanosis. Neurovascular intact. Full, normal range of motion. Neuro: Awake and alert, GCS 15, oriented to person, place, time, and situation. Cranial nerves II-XII grossly intact. Motor strength 5/5 in all extremities. Sensory grossly intact. Cerebellar exam normal. Normal gait. Psych: Awake, alert, with orientation to person, place and time. Behavior, mood, and affect are within normal limits. Vital Signs: 19:12 BP 118 / 79; Pulse 73; Resp 18; Temp 97.6; Pulse Ox 100% on R/A; Weight 48.99 kg; tl2 Height 5 ft. 5 in. (165.10 cm); Pain 9/10; 22:00 BP 131 / 99 RA Sitting (auto/reg); Pulse 77 MON; Resp 19 S; Pulse Ox 99% on R/A; jp3 23:00 BP 130 / 89; Pulse 70; Resp 16; Pulse Ox 100% ; Pain 0/10; cr4 19:12 Body Mass Index 17.97 (48.99 kg, 165.10 cm) tl2 MDM: 20:39 Patient medically screened. [facility] 21:14 Data reviewed: vital signs, nurses notes, lab test result(s), radiologic studies, CT [facility] scan, plain films. 11/11 19:38 Order name: Urine Culture [facility] 11/11 19:38 Order name: Urine Microscopic Only; Complete Time: 20:22 [facility] 11/11 19:42 Order name: Urine --Ancillary; Complete Time: 20:03 [facility] 11/11 19:42 Order name: Urine Dipstick-Ancillary; Complete Time: 20:03 [facility] 11/11 20:39 Order name: CBC with Diff; Complete Time: 21:45 [facility] 11/11 20:39 Order name: Comprehensive Metabolic Panel [facility] 11/11 19:38 Order name: CT Stone Protocol; Complete Time: 21:45 [facility] 11/11 20:39 Order name: Abdomen 1 View (KUB) XRAY; Complete Time: 21:45 maggie 11/11 21:32 Order name: Manual Differential; Complete Time: 21:45 EDMS 11/11 19:38 Order name: Urine Test (obtain specimen); Complete Time: 20:37 snw 11/11 19:38 Order name: Urine Dipstick-Ancillary (obtain specimen); Complete Time: 20:36 snw Administered Medications: 21:35 Not Given (Duplicate Order): Rocephin - (cefTRIAXone) 1 grams IVPB once over 30 mins; maggie (mix in 50 mL NS) 21:46 CANCELLED (Duplicate Order): Rocephin (cefTRIAXone) 1 grams IM once maggie 22:00 Drug: Zofran 4 mg Route: IVP; Site: left antecubital; cr4 22:30 Follow up: Response: No adverse reaction cr4 22:00 Drug: Rocephin - (cefTRIAXone) 1 grams Route: IVPB; Infused Over: 30 mins; Site: left cr4 antecubital; 22:35 Follow up: Response: No adverse reaction cr4 22:01 Drug: NS 0.9% 1000 ml Route: IV; Rate: 1 bolus; Site: left antecubital; cr4 23:05 Follow up: IV Status: Completed infusion; IV Intake: 1000ml cr4 22:01 Drug: fentaNYL (PF) 25 mcg Route: IVP; Site: left antecubital; cr4 22:30 Follow up: Response: Pain is decreased cr4 22:02 Not Given (changed to iv antibiotic): Cipro 500 mg PO once cr4 23:15 Drug: Cipro 500 mg Route: PO; cr4 23:30 Follow up: Response: No adverse reaction cr4 Disposition: 11/11/17 21:16 Discharged to Home. Impression: Hydronephrosis with renal and ureteral calculous obstruction - double j stent on right, Urinary tract infection, site not specified. - Condition is Stable. - Discharge Instructions: Kidney Stones, Kidney Stones, [id number], Hydronephrosis. - Prescriptions for Cipro 250 mg Oral Tablet - take 1 tablet by ORAL route every 12 hours; 14 tablet. Tylenol- Codeine #3 300-30 mg Oral Tablet - take 2 tablets by ORAL route every 6 hours As needed; 26 tablet. - Medication Reconciliation Form, Thank You Letter, Antibiotic Education, Prescription Opioid Use form. - Follow up: Private Physician; When: 2 - 3 days; Reason: Recheck today's complaints, Continuance of care, Re-evaluation by your physician. Follow up: Kelin Allison MD; When: 2 - 3 days; Reason: Recheck today's complaints, Continuance of care, Re-evaluation by your physician. - Problem is new. - Symptoms have improved. Signatures: Dispatcher [employer] EDJaya Gavin MD MD cha Therrien, Shelly, MANOJ-C FILAMENT TESTER-Azraw Margo Rosa, RN RN cr4 Lalita Asif RN RN tl2 Corrections: (The following items were deleted from the chart) 21:46 21:36 Rocephin (cefTRIAXone) 1 grams IM once [facility]. [facility] 21:47 21:16 11/11/2017 21:16 Discharged to Home. Impression: Hydronephrosis with renal and maggie ureteral calculous obstruction - double j stent on right. Condition is Stable. Forms are Medication Reconciliation Form, Thank You Letter, Antibiotic Education, Prescription Opioid Use. Follow up: Private Physician; When: 2 - 3 days; Reason: Recheck today's complaints, Continuance of care, Re-evaluation by your physician. Follow up: Kelin Allison; When: 2 - 3 days; Reason: Recheck today's complaints, Continuance of care, Re-evaluation by your physician. Problem is new. Symptoms have improved. [facility] 23:36 21:47 11/11/2017 21:16 Discharged to Home. Impression: Hydronephrosis with renal and cr4 ureteral calculous obstruction - double j stent on right; Urinary tract infection, site not specified. Condition is Stable. Discharge Instructions: Kidney Stones, Kidney Stones, [id number], Hydronephrosis. Prescriptions for Cipro 250 mg Oral Tablet - take 1 tablet by ORAL route every 12 hours; 14 tablet, Tylenol-Codeine #3 300-30 mg Oral Tablet - take 2 tablets by ORAL route every 6 hours As needed; 26 tablet. and Forms are Medication Reconciliation Form, Thank You Letter, Antibiotic Education, Prescription Opioid Use. Follow up: Private Physician; When: 2 - 3 days; Reason: Recheck today's complaints, Continuance of care, Re-evaluation by your physician. Follow up: Kelin Allison; When: 2 - 3 days; Reason: Recheck today's complaints, Continuance of care, Re-evaluation by your physician. Problem is new. Symptoms have improved. maggie
[2017-11-11 21:21] LABS: Hematocrit 38.8 % (36.0-45.0); MCH 28.7 pg (27.0-35.0); MCV 88.2 fL (80-100); MPV 8.4 fL (7.6-11.3)
--- NOTE | 2017-11-11 21:36 | RAD REPORT ---
EXAM DESCRIPTION: CT - Stone Protocol - 11/11/2017 8:33 pm CLINICAL HISTORY: Flank pain. PAIN COMPARISON: Stone Protocol dated 10/01/2017Stone Protocol dated 10/01/2017 TECHNIQUE: Axial images were obtained without oral or IV contrast. Lack of contrast limits solid org an and vascular assessment. The [id number] spans the entirety of the system partially obscuring uppermost abdomen and lung bases. Coronal reformatted images were obtained and reviewed. All CT scans are performed using dose optimization technique as appropriate and may include automated exposure control or mA/KV adjustment according to patient size. FINDINGS: The lower lung cardona are clear. Imaged portions of the liver and spleen show no suspicious findings on non-contrast imaging.Small hep atic cyst is present measuring 11 mm in the anterior right lobe. The pancreas and adrenal glands are normal. No pathologic lymphadenopathy in the abdomen or pelvis. Postsurgical changes are present in t he left upper quadrant. A right double-J stent is in place. The proximal aspect is in the renal pelvis superiorly in the dist al aspect is in the bladder. A 7 mm stone is present along the distal portion of the stent at the lev el of the pelvic inlet. Moderate right hydronephrosis is seen. Punctate bilateral nephrolithiasis is present in both kidneys. No bowel obstruction, free air, free fluid or abscess. Moderate fecal material is present in the colo n.IUD is present in the uterus. No significant bony abnormality. IMPRESSION: Right double-J stent is in place with 7 mm stone along the course the stent inferiorly. Moderate right-sided hydronephrosis is noted. Punctate bilateral nephrolithiasis is present.
--- NOTE | 2017-11-11 21:37 | RAD REPORT ---
EXAM DESCRIPTION: RAD - Abdomen 1 View (KUB) - 11/11/2017 9:00 pm CLINICAL HISTORY: ABD PAIN Pain COMPARISON: Abdomen 1 View (KUB) dated 10/06/2017 FINDINGS: The bowel gas pattern is non-obstructive. No evidence of free air or pneumatosis. Right do uble-J stent is noted in expected position. Calcification is seen along the course of the stent at th e level of the pelvic inlet compatible with a ureter stone.
[2017-11-11 21:41] LABS: ALT/SGPT 38 U/L (12-78); AST/SGOT 26 U/L (15-37); Alkaline Phosphatase 115 U/L (45-117); Anisocytosis 3+; BUN Blood Urea Nitrogen 16 mg/dL (7-18); Bicarbonate 31 mmol/L (21-32); Blood Morphology Comment NOTED (NOT SEEN); Glucose Level 96 mg/dL (74-106); Platelet Estimate ADEQ; Potassium 4.2 mmol/L (3.5-5.1); Protein, Total 7.5 g/dL (6.4-8.2); Sodium Level 144 mmol/L (136-145)
[2017-11-11 21:42] LABS: Poikilocytosis 1+; Target Cells 1+
[2017-11-11 21:43] LABS: Burr Cells 1+
[2017-11-11 21:44] LABS: Bilirubin Total < 0.1 mg/dL (0.2-1.0)
[2017-11-11] MEDS ORDERED: CIPROFLOXACIN HCL 500 MG TAB ONE (23:29)
== END 2017-11-11 23:36 | disposition home or self-care (01) ==
LOC: ER 19:04
DX: N13.6 Pyonephrosis (principal)
CPT/HCPCS: 36415; 74018; 74176; 76377; 80053; 81003; 81015; 81025; 85025; 87086; 87088; 96361; 96374; 96375; 99284; J0696; J2405; J3010; J7030

== ENCOUNTER 2017-11-29 09:14 | Day surgery (SDC) | payer OTHER ==
--- NOTE | 2017-11-29 09:20 | RAD REPORT ---
EXAM DESCRIPTION: RAD - Abdomen 1 View (KUB) - 11/29/2017 9:10 am CLINICAL HISTORY: preop Pain COMPARISON: Abdomen 1 View (KUB) dated 11/11/2017; Abdomen 1 View (KUB) dated 10/06/2017 FINDINGS: The bowel gas pattern is non-obstructive. No evidence of free air or pneumatosis. Right do uble-J stent is in place. Small calcification inferior right kidney. No significant bony findings. IUD in the pelvis. IMPRESSION: Double-J stent is in place. Punctate calcifications in the inferior right kidney.
[2017-11-29] MEDS ORDERED: Ringers Lactate 1,000 ML IV ONE ×2 (10:05→12:01)
[2017-11-29] MEDS ORDERED: GENTAMICIN 100 MG/100 ML BAG 100 MG/100 ML BAG IV ONE (10:06)
[2017-11-29] MEDS ORDERED: PROPOFOL 200 MG/20 ML VIAL IV ONE (10:50)
[2017-11-29] MEDS ORDERED: FENTANYL CITR 100 MCG/2 ML ONE (10:51)
[2017-11-29] MEDS ORDERED: MIDAZOLAM HCL 2 MG/2 ML INJ ONE (10:51)
[2017-11-29] MEDS ORDERED: LIDOCAINE 2% MPF 5 ML VIAL ONE (10:51)
[2017-11-29] MEDS ORDERED: ONDANSETRON HCL 40 MG/20 ML VIAL ONE (10:52)
[2017-11-29] MEDS: MEPERIDINE HCL 50 MG/ML AMP ONE ×2 (12:39→12:45)
--- NOTE | 2017-11-29 12:51 | RAD REPORT ---
EXAM DESCRIPTION: RAD - Urography Retrograde - 11/29/2017 12:45 pm CLINICAL HISTORY: STENT COMPARISON: Urethrocystogrphy Retrograde dated 10/02/2017 FINDINGS: Fluoroscopic imaging of the abdomen is submitted from right-sided ureter stent placement. Details of the procedure not available. Total fluoro time: 1 minutes 26 seconds.
[2017-11-29] MEDS ORDERED: KETOROLAC 30 MG/ML INJ ONE (12:53)
== END 2017-11-29 14:07 | disposition home or self-care (01) ==
LOC: OR 09:14
PROVIDERS: ATTEND Urology
PROC: 0T768DZ Dilation of Right Ureter with Intraluminal Device, Via Natural or Artificial Opening Endoscopic (ICD-10-PCS; 2017-11-29)
PROC: 0WHR8YZ Insertion of Other Device into Genitourinary Tract, Via Natural or Artificial Opening Endoscopic (ICD-10-PCS; 2017-11-29)
PROC: 0TF68ZZ Fragmentation in Right Ureter, Via Natural or Artificial Opening Endoscopic (ICD-10-PCS; principal; 2017-11-29 12:00)
DX: N20.1 Calculus of ureter (principal); Z85.028 Personal history of other malignant neoplasm of stomach; Z82.49 Family history of ischemic heart disease and other diseases of the circulatory system
CPT/HCPCS: 74018; 74420; 81025; J1580; J2175; J2250; J2405; J3010; Q9967

== ENCOUNTER 2019-03-12 17:49 | Emergency (ER) | payer OTHER ==
[2019-03-12] MEDS ORDERED: NA CHLORIDE 0.9% 1,000 ML ONE (18:46)
[2019-03-12 18:58] LABS: Urine Bacteria <20 /HPF (<20); Urine Culture Reflex Order NOT NEEDED; Urine Mucus 1+ /HPF (NONE SEEN); Urine RBC >50 /HPF (NONE SEEN)
[2019-03-12 18:58] LABS: Urine Blood 3+ (NEG); Urine Glucose 3+ (NEG); Urine Protein 2+ (NEG); Urine Specific Gravity 1.015 (1.005-1.030); Urine pH 5.5 (5.0-7.0)
[2019-03-12 19:04] LABS: Absolute Lymphocytes (CBC) 1.4 K/uL (0.7-4.9); Basophils % 0.9 % (0-1.3); Hematocrit 39.4 % (36.0-45.0); MPV 8.7 fL (7.6-11.3); RBC Red Blood Cell Count 4.28 M/uL (3.86-4.86)
[2019-03-12 19:27] LABS: ALT/SGPT 35 U/L (12-78); AST/SGOT 46 U/L (15-37); Albumin 3.5 g/dL (3.4-5.0); Alkaline Phosphatase 92 U/L (45-117); BUN Blood Urea Nitrogen 15 mg/dL (7-18); Bicarbonate 27 mmol/L (21-32); Bilirubin Direct < 0.1 mg/dL (0-0.2); Bilirubin Total 0.1 mg/dL (0.2-1.0); Glucose Level 237 mg/dL (74-106); Lipase 74 U/L (73-393); Potassium 3.9 mmol/L (3.5-5.1); Protein, Total 6.5 g/dL (6.4-8.2); Sodium Level 140 mmol/L (136-145)
--- NOTE | 2019-03-12 19:32 | RAD REPORT ---
EXAM DESCRIPTION: CT - Stone Protocol - 03/12/2019 7:10 pm CLINICAL HISTORY: Left flank pain COMPARISON: November 24, 2018 CT TECHNIQUE: Axial 5 mm thick images were obtained without oral or IV contrast. The [id number] span s the entirety of the system including uppermost abdomen and lung bases. All CT scans are performed using dose optimization technique as appropriate and may include automated exposure control or mA/KV adjustment according to patient size. FINDINGS: Mild dilatation of the left side pelvis and calices present secondary to a 13 x 9 x 8 mm l eft pelvic calcification at the UPJ. An additional 5 millimeter calcification is present in the lower pole calyx. Distal to the calcification ureter is prominent but not dilated. No other ureteral calcu li seen. The lower pole of the right kidney shows a cluster of calcifications ranging from 2 mm to 6 mm in size. No suspicious renal masses. Isodense masses and pyelonephritis are not excluded on a ston e protocol CT scan. Urinary bladder is mostly contracted. No bladder calculi. Phleboliths are seen al jarrod the pelvic floor. No significant adrenal finding. Uterus and ovaries show no suspicious findings for age. Imaged portions of the liver, spleen and pancreas show no suspicious findings on non-contrast imaging . No gallbladder or biliary tree abnormality identified. Gastric surgical changes are noted. Moderately large stool volume throughout the colon. No hernia, mass or bulky lymphadenopathy noted. No free air, free fluid or inflammatory stranding. No significant bony abnormality. IMPRESSION: Mild dilatation of the left pelvis and calices secondary to a 13 x 9 x 8 mm UPJ calculus . Additional nonobstructing bilateral calyx calculi are present. No acute GI process. Moderate stool volume is present throughout colon. Isodense masses and pyelonephritis are not excluded on stone protocol technique.
--- NOTE | 2019-03-12 20:32 | EDPHYS ---
Physician Documentation [facility] Name: Vicenta Vicente Age: 33 yrs Sex: Female : 1985 Arrival Date: 03/12/2019 Time: 17:53 Bed 30 Private MD: ED Physician Thiago Alicea HPI: 03/12 19:07 This 33 yrs old Female presents to ER via Ambulatory with complaints of Flu pm1 Symptoms. 19:07 The patient or guardian reports flu symptoms. Onset: The symptoms/episode pm1 began/occurred 3 day(s) ago. Severity of symptoms: in the emergency department the symptoms are unchanged. Modifying factors: The symptoms are alleviated by OTC cold preparation, the symptoms are aggravated by nothing. Associated signs and symptoms: Pertinent positives: left flank pain that feels like her prior kidney stones in the past, Pertinent negatives: chest pain, diarrhea, vomiting, shortness of breath. present in the ER with son and sister that have flu-like symptoms. 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 - Social history:: Smoking status: Patient/guardian denies using tobacco. - Ebola Screening: : No symptoms or risks identified at this time. ROS: 19:07 Eyes: Negative for injury, pain, redness, and discharge, ENT: Negative for injury, pm1 pain, and discharge, Neck: Negative for injury, pain, and swelling. 19:07 Cardiovascular: Negative for chest pain, palpitations, and edema, Respiratory: Negative for shortness of breath, cough, wheezing, and pleuritic chest pain, Abdomen/GI: Negative for abdominal pain, nausea, vomiting, diarrhea, and constipation, MS/Extremity: Negative for injury and deformity, Skin: Negative for injury, rash, and discoloration, Neuro: Negative for headache, weakness, numbness, tingling, and seizure. 19:07 Constitutional: Positive for body aches, fever, Negative for poor PO intake. 19:07 Back: Positive for flank pain, on the left, Negative for decreased range of motion, pain with movement. 19:07 : Negative for urinary symptoms. Exam: 19:07 Constitutional: This is a well developed, well nourished patient who is awake, alert, pm1 and in no acute distress. Head/Face: Normocephalic, atraumatic. Eyes: Pupils equal round and reactive to light, extra-ocular motions intact. Lids and lashes normal. Conjunctiva and sclera are non-icteric and not injected. Cornea within normal limits. Periorbital areas with no swelling, redness, or edema. ENT: Nares patent. No nasal discharge, no septal abnormalities noted. Tympanic membranes are normal and external auditory canals are clear. Oropharynx with no redness, swelling, or masses, exudates, or evidence of obstruction, uvula midline. Mucous membranes moist. Neck: Trachea midline, no thyromegaly or masses palpated, and no cervical lymphadenopathy. Supple, full range of motion without nuchal rigidity, or vertebral point tenderness. No Meningismus. Chest/axilla: Normal chest wall appearance and motion. Nontender with no deformity. No lesions are appreciated. Cardiovascular: Regular rate and rhythm with a normal S1 and S2. No gallops, murmurs, or rubs. Normal PMI, no JVD. No pulse deficits. Respiratory: Lungs have equal breath sounds bilaterally, clear to auscultation and percussion. No rales, rhonchi or wheezes noted. No increased work of breathing, no retractions or nasal flaring. Abdomen/GI: Soft, non-tender, with normal bowel sounds. No distension or tympany. No guarding or rebound. No evidence of tenderness throughout. Back: No spinal tenderness. No costovertebral tenderness. Full range of motion. Skin: Warm, dry with normal turgor. Normal color with no rashes, no lesions, and no evidence of cellulitis. MS/ Extremity: Pulses equal, no cyanosis. Neurovascular intact. Full, normal range of motion. 19:07 Neuro: Orientation: is normal, Motor: is normal, moves all fours, Sensation: is normal, no obvious gross deficits, Gait: is steady, at a normal pace, without difficulty. Vital Signs: 18:08 BP 107 / 75; Pulse 79; Resp 16; Temp 98.1; Pulse Ox 97% ; Weight 52.16 kg; Height 5 ft. sv 5 in. (165.10 cm); Pain 4/10; 19:26 BP 106 / 77; Pulse 66; Resp 17; Pulse Ox 100% ; rv 19:53 BP 109 / 78; Pulse 65; Resp 16; Pulse Ox 100% on R/A; rv 20:38 BP 113 / 83; Pulse 68; Resp 17; Pulse Ox 100% on R/A; rv 18:08 Body Mass Index 19.14 (52.16 kg, 165.10 cm) sv MDM: 18:43 Patient medically screened. pm1 20:23 Physician consultation: Kelin Allison MD was called at 20:23, was contacted at 20:23, pm1 regarding consult, patient's condition, and will see patient in office, . Send patient home with pain medications and bring a film of KUB to the office. Patient to lay on left side lying position. 20:23 Counseling: I had a detailed discussion with the patient and/or guardian regarding: the pm1 historical points, exam findings, and any diagnostic results supporting the discharge/admit diagnosis, lab results, radiology results, discussed plan of care by Dr. Allison. Patient denies current pain in the ER and is comfortable going home to follow up with Dr. Allison . 20:29 Data reviewed: vital signs. pm1 03/12 18:23 Order name: Urine Microscopic Only; Complete Time: 19:09 rv 03/12 18:34 Order name: Urine Dipstick--Ancillary (enter results); Complete Time: 19:09 03/12 18:34 Order name: Urine --Ancillary (enter results); Complete Time: 19:09 bd 03/12 18:41 Order name: Flu; Complete Time: 19:38 pm1 03/12 18:41 Order name: Basic Metabolic Panel; Complete Time: 19:38 pm1 03/12 18:41 Order name: CBC with Diff; Complete Time: 19:09 pm1 03/12 18:41 Order name: Creatinine for Radiology; Complete Time: 19:38 pm1 03/12 18:41 Order name: Hepatic Function; Complete Time: 19:38 pm1 03/12 18:41 Order name: Lipase; Complete Time: 19:38 pm1 03/12 18:41 Order name: Strep; Complete Time: 19:38 pm1 03/12 19:07 Order name: Stone Protocol; Complete Time: 19:38 EDMS 03/12 19:24 Order name: Throat Culture EDMS 03/12 20:28 Order name: Abdomen 1 View (KUB) XRAY pm1 03/12 18:23 Order name: Urine Dipstick-Ancillary (obtain specimen); Complete Time: 19:22 rv 03/12 18:23 Order name: Urine Test (obtain specimen); Complete Time: 19:21 rv 03/12 18:41 Order name: IV Saline Lock; Complete Time: 19:13 pm1 03/12 18:41 Order name: Labs collected and sent; Complete Time: 19:14 pm1 Administered Medications: 09:00 Drug: NS 0.9% 1000 ml Route: IV; Rate: 1000 ml; Site: left antecubital; rv 19:52 Follow up: IV Status: Completed infusion; IV Intake: 1000ml rv Disposition: 03/12/19 20:30 Discharged to Home. Impression: Calculus of kidney with calculus of ureter, Influenza due to identified novel influenza A virus. - Condition is Stable. - Discharge Instructions: Kidney Stones, Dietary Guidelines to Help Prevent Kidney Stones. - Prescriptions for Tramadol 50 mg Oral Tablet - take 1 tablet by ORAL route every 8 hours As needed as needed; 20 tablet. - Medication Reconciliation Form, Thank You Letter, Antibiotic Education, Prescription Opioid Use form. - Follow up: Emergency Department; When: As needed; Reason: Worsening of condition. Follow up: Kelin Allison MD; When: 03/15/2019; Reason: Recheck today's complaints, Continuance of care, Re-evaluation by your physician. - Problem is new. - Symptoms have improved. Addendum: 03/14/2019 07:57 Co-signature as Attending Physician, Thiago Alicea MD I agree with the assessment and k dr plan of care. Signatures: Dispatcher [employer] EDKY Dior Nelson, Thiago Wang RN, MD MD kdr Yohannes Curry NP DIRECTOR OF PAYROLL pm1 Ambrosio Lou RN RN mg2 Hamzah Fields RN RN rv Corrections: (The following items were deleted from the chart) 03/12 19:03 18:42 Stone Protocol+CT.RAD.BRZ ordered. EDKY EDMS 20:59 20:30 03/12/2019 20:30 Discharged to Home. Impression: Calculus of kidney with calculus mg2 of ureterInfluenza due to identified novel influenza A virus. Condition is Stable. Forms are Medication Reconciliation Form, Thank You Letter, Antibiotic Education, Prescription Opioid Use. Follow up: Emergency Department; When: As needed; Reason: Worsening of condition. Follow up: Kelin Allison; When: 03/15/2019; Reason: Recheck today's complaints, Continuance of care, Re-evaluation by your physician. Problem is new. Symptoms have improved. pm1
--- NOTE | 2019-03-12 20:32 | ER ---
Nurse's Notes [facility] Name: Vicenta Vicente Age: 33 yrs Sex: Female : 1985 Arrival Date: 03/12/2019 Time: 17:53 Bed 30 Private MD: Diagnosis: Influenza due to identified novel influenza A virus;Calculus of kidney with calculus of ureter Presentation: 03/12 18:05 Presenting complaint: Patient states: chills, body aches, fever Tmax 102.7, neck sv stiffness, productive cough clear sputum, sore throat, left flank pain that now is left abd pain with hematuria started Tuesday. Transition of care: patient was not received from another setting of care. Onset of symptoms was March 10, 2019. Risk Assessment: Do you want to hurt yourself or someone else? Patient reports no desire to harm self or others. Initial Sepsis Screen: Does the patient meet any 2 criteria? No. Patient's initial sepsis screen is negative. Does the patient have a suspected source of infection? No. Patient's initial sepsis screen is negative. Care prior to arrival: None. 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 - Social history:: Smoking status: Patient/guardian denies using tobacco. - Ebola Screening: : No symptoms or risks identified at this time. Screenin:25 Abuse screen: Denies threats or abuse. Denies injuries from another. Nutritional rv screening: No deficits noted. Tuberculosis screening: No symptoms or risk factors identified. Fall Risk None identified. Assessment: 18:30 General: Appears in no apparent distress. comfortable, Behavior is calm, cooperative. rv 18:30 Pain: Complains of pain in throat. Neuro: Level of Consciousness is awake, alert, obeys rv commands, Oriented to person, place, time, situation. Cardiovascular: Patient's skin is warm and dry. Respiratory: Airway is patent. Vital Signs: 18:08 BP 107 / 75; Pulse 79; Resp 16; Temp 98.1; Pulse Ox 97% ; Weight 52.16 kg; Height 5 ft. sv 5 in. (165.10 cm); Pain 4/10; 19:26 BP 106 / 77; Pulse 66; Resp 17; Pulse Ox 100% ; rv 19:53 BP 109 / 78; Pulse 65; Resp 16; Pulse Ox 100% on R/A; rv 20:38 BP 113 / 83; Pulse 68; Resp 17; Pulse Ox 100% on R/A; rv 18:08 Body Mass Index 19.14 (52.16 kg, 165.10 cm) sv ED Course: 17:53 Patient arrived in ED. as 18:07 Triage completed. sv 18:08 Arm band placed on. sv 18:22 Hamzah Fields, FELICIANO is Primary Nurse. rv 18:35 Yohannes Curry NP is PHCP. pm1 18:35 Thiago Alicea MD is Attending Physician. pm1 18:53 Inserted saline lock: 22 gauge in left antecubital area, using aseptic technique. Blood rv collected. 19:11 Stone Protocol In Process Unspecified. EDMS 19:25 Patient has correct armband on for positive identification. Bed in low position. Call rv light in reach. Pulse ox on. NIBP on. 19:52 No provider procedures requiring assistance completed. rv 20:30 Kelin Allison MD is Referral Physician. pm1 20:39 IV discontinued, intact, bleeding controlled, No redness/swelling at site. Pressure rv dressing applied. 20:57 Abdomen 1 View (KUB) XRAY In Process Unspecified. EDMS Administered Medications: 09:00 Drug: NS 0.9% 1000 ml Route: IV; Rate: 1000 ml; Site: left antecubital; rv 19:52 Follow up: IV Status: Completed infusion; IV Intake: 1000ml rv Intake: 19:52 IV: 1000ml; Total: 1000ml. rv Outcome: 20:30 Discharge ordered by . pm1 20:39 Discharged to home ambulatory. rv 20:39 Condition: improved 20:39 Discharge instructions given to patient, Instructed on discharge instructions, follow up and referral plans. medication usage, Demonstrated understanding of instructions, follow-up care, medications, Prescriptions given X 1. 20:59 Patient left the ED. mg2 Signatures: Dispatcher [employer] EDDior Calvert RN RN sv Devika Alvarado as Yohannes Curry, INTEGRATION DIRECTOR INTEGRATION DIRECTOR pm1 Ambrosio Lou RN RN mg2 Hamzah Fields RN RN rv Corrections: (The following items were deleted from the chart) 18:10 18:05 Presenting complaint: Patient states: chills, body aches, fever Tmax 102.7, neck sv stiffness, productive cough clear sputum, sore throat, left flank pain that now is left abd pain with hematuria. sv
[2019-03-12 23:41] VITALS: TEMP 98.1
[2019-03-12 23:42] VITALS: O2SAT 100
[2019-03-12 23:45] VITALS: BP 113/83
--- NOTE | 2019-03-13 12:29 | RAD REPORT ---
EXAM DESCRIPTION: RAD - Abdomen 1 View (KUB) - 03/12/2019 8:52 pm CLINICAL HISTORY: KIDNEY STONES COMPARISON: Abdomen 1 View (KUB) dated 12/05/2017 Due to technical malfunction, dated base with prior imaging studies not available. Reports were avail able and reviewed. FINDINGS: Bowel gas pattern is non-specific. No obstruction, free air or pneumatosis. No acute bone finding. IUD is in place. The 13 millimeter left UPJ calculus is identified lateral to the L1 transverse process. Additional no nobstructing bilateral calyx calculi are present. No bladder calculi. IMPRESSION: Approximately 13 millimeter left UPJ calculus is present matching the CT study. Bilateral nonobstructing calculi.
== END 2019-03-12 20:59 | disposition home or self-care (01) ==
LOC: ER 17:49
DX: N20.2 Calculus of kidney with calculus of ureter (principal); J10.1 Influenza due to other identified influenza virus with other respiratory manifestations
CPT/HCPCS: 96361; 87070; 85025; 80048; 36415; 81025; 80076; 87081; 83690; 87804 ×2; 76377; 74176; 74018; 96360; 99284; J7030; 81003; 81015

== ENCOUNTER 2019-04-10 08:58 | Day surgery (SDC) | payer OTHER ==
--- NOTE | 2019-04-02 09:20 | RAD REPORT ---
EXAM DESCRIPTION: Chang Terrazas And Mo (2 Views)04/02/2019 9:10 am CLINICAL HISTORY: Preop for lithotripsy COMPARISON: 2018 FINDINGS: Bilateral calcified lung masses are mostly unchanged. One within the right lung may have m ildly decreased in size Lungs appear clear of acute infiltrate The heart is normal size
[2019-04-02 09:21] LABS: Absolute Lymphocytes (CBC) 1.4 K/uL (0.7-4.9); Basophils % 0.6 % (0-1.3); Hematocrit 36.4 % (36.0-45.0); Lymphocytes % 15.8 % (15.3-44.8); MPV 8.7 fL (7.6-11.3); RBC Red Blood Cell Count 4.02 M/uL (3.86-4.86)
[2019-04-02 09:22] LABS: Urine Appearance CLOUDY; Urine Bilirubin NEGATIVE (NEG); Urine Blood 3+ (NEG); Urine Color YELLOW; Urine Glucose NEGATIVE (NEG); Urine Protein 1+ (NEG); Urine Urobilinogen 0.2 mg/dL (0.2-1.0); Urine pH 5.5 (5.0-7.0)
[2019-04-02 09:30] LABS: Protime INR 0.95
[2019-04-02 09:35] LABS: Phosphorus 3.7 mg/dL (2.5-4.9); Uric Acid 3.6 mg/dL (2.6-6.0)
[2019-04-02 09:36] LABS: Urine Bacteria <20 /HPF (<20); Urine RBC 20-50 /HPF (NONE SEEN)
[2019-04-02 09:37] LABS: Urine Culture Reflex Order NOT NEEDED; Urine Microscopic Reflex ORDER UMIC; Urine Mucus MOD /HPF (NONE SEEN)
--- NOTE | 2019-04-02 10:22 | EKG ---
Test Date: 2019-04-02 Test Time: 08:45:32 Autocad Electrical Designer: HERNANDO MEASUREMENT RESULTS: Intervals: Rate: 60 AL: 136 QRSD: 82 QT: 442 QTc: 442 [place]: P: 52 AL: 136 QRS: 82 T: 72 INTERPRETIVE STATEMENTS: Normal sinus rhythm Normal ECG Compared to ECG 11/25/2017 13:46:29 Sinus bradycardia no longer present Myocardial infarct finding no longer present Electronically Signed On 04-02-19 10:21:46 MANAGER CREATIVE SERVICES by David Camacho
[~2019-04-10 08:58] MED LIST: FENTANYL CITR 100 MCG/2 ML ONE; LIDOCAINE 2% MPF 5 ML VIAL ONE; MIDAZOLAM HCL 2 MG/2 ML INJ ONE; ONDANSETRON 4 MG/2 ML VIAL ONE; propofoL 200 MG/20 ML VIAL IV ONE
[2019-04-10] MEDS ORDERED: Ringers Lactate 1,000 ML IV ONE (09:21)
[2019-04-10] MEDS ORDERED: propofoL 200 MG/20 ML VIAL IV ONE (10:51)
[2019-04-10] MEDS ORDERED: FENTANYL CITR 100 MCG/2 ML ONE (10:51)
[2019-04-10] MEDS ORDERED: MIDAZOLAM HCL 2 MG/2 ML INJ ONE (10:52)
[2019-04-10] MEDS ORDERED: ONDANSETRON 4 MG/2 ML VIAL ONE (10:52)
[2019-04-10] MEDS ORDERED: LIDOCAINE 2% MPF 5 ML VIAL ONE (10:52)
[2019-04-10] MEDS ORDERED: GLYCOPYRROLATE 0.2 MG/ML SYR ONE (10:55)
[2019-04-10] MEDS ORDERED: NEOSTIGMINE 1 MG/ML -5 ML ONE (10:57)
[2019-04-10] MEDS ORDERED: ROCURONIUM 50 MG/5 ML VIAL IV ONE (10:57)
[2019-04-10] MEDS: GENTAMICIN 80 MG/100 ML BAG 80 MG/100 ML BAG IV ONE ×2 (11:00→11:52)
[2019-04-10] MEDS ORDERED: HYDROMORPHONE HCL 1 MG/ML INJ ONE (13:06)
[2019-04-10] MEDS: HYDROMORPHONE HCL 1 MG/ML INJ ONE ×3 (13:12→13:24)
[2019-04-10] MEDS ORDERED: PROMETHAZINE INJ 25 MG/ML AMP ONE (13:16)
[2019-04-10] MEDS ORDERED: KETOROLAC 30 MG/ML INJ ONE (13:28)
[2019-04-10 16:31] VITALS: O2SAT 100
[2019-04-10 16:37] VITALS: BP 102/61; TEMP 97
== END 2019-04-10 16:00 | disposition home or self-care (01) ==
LOC: OR 08:58
PROVIDERS: ATTEND Urology
DX: N20.0 Calculus of kidney (principal); Q62.39 Other obstructive defects of renal pelvis and ureter; Z90.3 Acquired absence of stomach [part of]; Z91.040 Latex allergy status; Z82.49 Family history of ischemic heart disease and other diseases of the circulatory system
CPT/HCPCS: 93005; 87088; 85025; 80048; 36415; 81025; 84100; 85610; 84550; 85730; 71046; 50590; J2704; J2550; J2250; J3010; J1170 ×2; J2710; J7120; J1580; J2405; 81003; 81015; 87086

== ENCOUNTER 2019-05-08 07:28 | Day surgery (SDC) | payer OTHER ==
[2019-05-07 14:17] LABS: Absolute Lymphocytes (CBC) 2.5 K/uL (0.7-4.9); Basophils % 0.6 % (0-1.3); Hematocrit 41.5 % (36.0-45.0); Lymphocytes % 48.6 % (15.3-44.8); MPV 9.3 fL (7.6-11.3); RBC Red Blood Cell Count 4.56 M/uL (3.86-4.86)
[2019-05-07 14:20] LABS: Protime INR 0.89
[2019-05-07 14:27] LABS: Phosphorus 2.1 mg/dL (2.5-4.9); Potassium 3.9 mmol/L (3.5-5.1)
[2019-05-07 15:39] LABS: Urine Appearance CLEAR; Urine Bilirubin NEGATIVE (NEG); Urine Blood NEGATIVE (NEG); Urine Color YELLOW; Urine Glucose 3+ (NEG); Urine Protein TRACE (NEG); Urine Urobilinogen 0.2 mg/dL (0.2-1.0); Urine pH 7.5 (5.0-7.0)
[2019-05-07 15:40] LABS: Urine Microscopic Reflex ORDER UMIC
[2019-05-07 15:42] LABS: Urine Amorphous Sediment 1+ /HPF (NONE SEEN); Urine Bacteria <20 /HPF (<20); Urine Culture Reflex Order NOT NEEDED; Urine Mucus 2+ /HPF (NONE SEEN)
[2019-05-08] MEDS ORDERED: Ringers Lactate 1,000 ML IV ONE (07:41)
[2019-05-08] MEDS ORDERED: GENTAMICIN 80 MG/100 ML BAG 80 MG/100 ML BAG IV ONE (07:41)
--- NOTE | 2019-05-08 08:44 | RAD REPORT ---
EXAM DESCRIPTION: RAD - Abdomen 1 View (KUB) - 05/08/2019 7:58 am CLINICAL HISTORY: PREOP SAME DAY SURGERY RM 4 Pain COMPARISON: Abdomen 1 View (KUB) dated 04/18/2019; Abdomen 1 View (KUB) dated 03/12/2019; Abdomen 1 V iew (KUB) dated 12/05/2017; Abdomen 1 View (KUB) dated 11/29/2017 FINDINGS: The bowel gas pattern is non-obstructive. No evidence of free air or pneumatosis. Small ca lcification projects along the inferior aspect of the right kidney to the right of the L3 transverse process. Small calcification also seen in the left hemipelvis.
[2019-05-08] MEDS ORDERED: MIDAZOLAM HCL 2 MG/2 ML INJ ONE (09:40)
[2019-05-08] MEDS ORDERED: FENTANYL CITR 100 MCG/2 ML ONE (09:40)
[2019-05-08] MEDS ORDERED: ONDANSETRON 4 MG/2 ML VIAL ONE ×2 (09:40→12:31)
[2019-05-08] MEDS ORDERED: LIDOCAINE 2% MPF 5 ML VIAL ONE (09:41)
[2019-05-08] MEDS ORDERED: propofoL 200 MG/20 ML VIAL IV ONE (09:41)
[2019-05-08] MEDS ORDERED: GLYCOPYRROLATE 0.2 MG/ML SYR ONE (09:56)
[2019-05-08] MEDS ORDERED: MORPHINE 4 MG/ML SYR ONE (11:29)
[2019-05-08] MEDS ORDERED: TRAMADOL HCL 50 MG TAB ONE (12:09)
[2019-05-08 15:02] VITALS: BP 137/70; TEMP 98; O2SAT 97
== END 2019-05-08 13:00 | disposition home or self-care (01) ==
LOC: OR 07:28
PROVIDERS: ATTEND Urology
DX: N20.0 Calculus of kidney (principal); Z91.040 Latex allergy status; Z82.49 Family history of ischemic heart disease and other diseases of the circulatory system
CPT/HCPCS: 87088; 85025; 87086; 80048; 36415; 81025; 84100; 85610; 84550; 85730; 82330; 74018; 50590; J2704; J2250; J3010; J7120; J1580; J2405 ×2; 81003; 81015

== ENCOUNTER 2024-12-23 14:41 | Emergency (ER) | payer OTHER ==
--- OUTSIDE RECORDS SUMMARY | 2024-12-23 14:44 | XMS REPORT | Clinical Summary ---
Author Name Unknown Organization [facility] [place] Address [address] [place] [address] Care Team Providers Care Pulverizer Feeder Name Role Phone Jaya Torres MD Unavailable [phone] Toshia Goetz MD Unavailable Dipak Dsouza MD Unavailable [phone] Toshia Goetz MD Unavailable [phone] Elvia Zapata APRN Unavailable [phone] Paulina Maldonado MD Unavailable [phone] Case Longoria MD Unavailable [phone] Gini Russell MD Unavailable [phone] Anamaria Wall MD Unavailable [phone] Apryl Nelson MD Unavailable [phone] Colin Olivo MD Unavailable Checo Levi MD Unavailable [phone] Owen Alvarado MD Unavailable [phone] Damon Lamas MD Unavailable [email or web address] Radha Larry MD Unavailable Donna Mitchell CHEMIST STEROIDS Unavailable Redd Coello MD Unavailable Pj Maddox MD Unavailable [phone] Ahmet Spear MD Unavailable Elvin Gilbert MD Unavailable [email or web address] Kenji Wild MD Unavailable Rosalinda Bone MD Unavailable [phone] Case Flores MD Unavailable Fox Esteves MD Unavailable [phone] Omar Lynn MD Unavailable [phone] Stephanie Ray CHEMIST STEROIDS Unavailable [email or web address] Jamee Quintanilla PA Unavailable [phone] Pepe Forbes PA Unavailable [phone] Nilton Palomares MD Unavailable Marcell Mixon MD Unavailable Tree Aj MD Unavailable [phone] Quentin Arora MD Unavailable Ghazala Saba APRN Unavailable [facility] MD Unavailable Chandni Bone PA Unavailable Jackelyn Morrow MD Unavailable [phone] Vanessa Prado MD Unavailable Machelle Ruiz PA Unavailable Elvin Gilbert MD Primary Care Provider Pamela [email or web address] Rothman, Ly M Unavailable [email or web address] Joaquin Hamm MD Unavailable Joleen Correa MD Unavailable Andrey Goff MD Unavailable [phone] Dale Briones MD Unavailable Fredo Carey MD Unavailable [phone] Myriam Boo Unavailable [phone] Whit Rangel PA-C Unavailable [phone] Allergies Active Allergy Reactions Criticality Noted Date Comments Latex 12/19/2019 Other reaction(s): Hives/Rash Medications * This document contains information received from the source organization and may not represent a complete record from that organization. magnesium citrate 125 mg cap 0 Active cholecalciferol, vitamin D3, (VITAMIN D3) 2,000 units tab tablet Take 1 tablet (2,000 Units) by mouth daily. Active multivitamin (THERAGRAN) tablet Take 1 tablet by mouth daily. Active zinc gluconate 50 mg tablet Take 1 tablet (50 mg) by mouth daily. Active doxycycline (VIBRAMYCIN) 100 mg tabletIndications: Neoplasm of uncertain behavior of soft tissues of shoulder <Connective and other soft tissue; Other neoplasm of uncertain behavior> Take 1 tablet (100 mg) by mouth twice daily. 60 tablet 3 3 Active IMATinib (Gleevec) 400 mg tabletIndications: Gastrointestinal stromal tumor of small intestine Take 1 tablet (400 mg) by mouth daily. 30 tablet 11 12/21/2023 3:23 PM CDT 4 Active IMATinib (Gleevec) 400 mg tabletIndications: Gastrointestinal stromal tumor of small intestine,Secondar y malignant neoplasm of left lung,Secondary malignant neoplasm of right lung Take 1 tablet (400 mg) by mouth daily. Take dose with a meal and a large glass of water. 30 tablet 11 06/14/2024 10:26 AM CDT 4 Active ondansetron (ZOFRAN-ODT) 8 mg disintegrating tabletIndications: Nausea Dissolve 1 tablet (8 mg) on the tongue every 8 (eight) hours as needed for nausea. 45 tablet 12/21/2023 3:23 PM CDT 4 Active ondansetron (ZOFRAN-ODT) 8 mg disintegrating tabletIndications: Nausea and vomiting Dissolve 1 tablet (8 mg) on the tongue every 8 (eight) hours as needed for nausea. 60 tablet 06/14/2024 10:26 AM CDT 5 Active ondansetron (ZOFRAN-ODT) 8 mg disintegrating tabletIndications: Nausea and vomiting Dissolve 1 tablet (8 mg) on the tongue every 8 (eight) hours as needed for nausea. 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 Restaging in 08/2022 revealed progression and initiated on Gleevec 400 mg daily on 09/10/2022. In the interim, patient underwent IR biopsy of the liver, and liver embolization on 09/14/2022 and 04/01/2023. Currently on Gleevec 400 mg daily Skin is extreme dry. Dry and cracked lips. Nausea - intermittent- Not taking zofran regularly. Irregular BMs. Intermittent diarrhea. Fatigue- improved after taking Vyvanse. Craving for ice. Appetite is fine. Looking for another job now. Was on Metformin and Januvia- CO ed 2 months ago (Last refill for these scripts from 11/2022 per chart review) - because she did not get scripts. S/p resection of CELLULAR FIBROUS HISTIOCYTOMA, MARGINS ARE FREE from back, surgical wound is healing now, getting better per patient . Labs are reviewed, blood sugar 426. Patient is advised to make appointment for IBS possibly with PCP/endocrine. . Refused for referral at [facility]. Patient will continue Gleevec 400 mg daily, restaging in 6 months with MRI of the abdomen and pelvis, CT chest without contrast to follow-up on the lung nodules, and routine labs. Nausea: Zofran is advised 30 mts prior to Gleevec daily Advised to reach us/ if transport assistance is needed Assessment & Plan (10/01/2022 3:07 PM CDT): Vicenta Vicente is a 37 y.o. 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 She returns for follow up and restaging. Patient was seen in the clinic last year, and missed multiple appointments. She is overall doing well, Labs are satisfactory Restaging studies reveal progressive disease. We will request for IR biopsy as soon as possible with Y90, will be emailed to IR team Also discussed restarting on imatinib 400 mg daily. Vicenta Vicente is a 37 y.o. 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 Restaging in 08/2022 revealed progression and initiated on Gleevec 400 mg daily. Started post liver embolization on 09/14/2022. Patient was last seen in the clinic on 08/30/2022, and restaging studies reveal progression. Patient was initiated on Gleevec 400 mg daily, which restarted on 09/10/2022. Advised prophylaxis to be continued while on treatment. Patient has accepted tolerance with therapy. Labs are satisfactory, noted high blood sugar, 263. Patient reported gestational diabetes, and received insulin. No follow-up with endocrine yet. Advised patient to follow-up with endocrine today itself, A1c 11, or go to urgent care for insulin recommendation. Patient will continue Gleevec 400 mg daily, restaging in a month with MRI of the abdomen and pelvis, CT chest without contrast to follow-up on the lung nodules, and routine labs. Patient will also needs to be evaluated by IR after imaging. Assessment & Plan (08/31/2022 6:42 AM CDT): Vicenta Vicente is a 37 y.o. 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 She returns for follow up and restaging. Patient was seen in the clinic last year, and missed multiple appointments. She is overall doing well, Labs are satisfactory Restaging studies reveal progressive disease. We will request for IR biopsy as soon as possible with Y90, will be emailed to IR team Also discussed restarting on imatinib 400 mg daily. Patient is advised to hold imatinib a day before the procedure. Patient will have labs locally every 2 weeks, toxicity check in 1 month She will return to clinic for restaging in 2 months with MRI of the abdomen and pelvis and CT chest without contrast Recurrent ? Skin tag growth over the right shoulder : We will request for dermatology consult Potassium was 5.8 on 08/06/2022 : With unknown etiology, we recommended to repeat the labs on 08/30. But patient did not go for the lab. Advised prophylaxis while on treatment Assessment & Plan (08/25/2020 2:48 PM CDT): Vicenta Vicente is a 35 y.o. 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 She was initially diagnosed in 2000, status post resection of the gastric gist, recurrence in 09/2013 followed by emergency surgery in 12/2013 for GI bleed, started with Gleevec since 09/2013. Patient developed liver lesions in 01/2014 while off of Gleevec. Patient started ipilimumab and imatinib clinical trial, protocol [id number] on 05/15/2014. Most recently patient was on single agent Gleevec 400 mg daily until 09/28/2019. Clinical information and diagnostic information have been reviewed by Dr. Russell and discussed with the patient the following plans were formulated and discussed. She will remain off imatinib for now . We will get a chest x-ray and ultrasound of the liver next week as a baseline. If she gets , patient is advised to notify us the clinic. Assessment & Plan (01/30/2020 11:22 AM BROKE BEATER): Vicenta Vicente is a 34 y.o. 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 She was initially diagnosed in 2000, status post resection of the gastric gist, recurrence in 09/2013 followed by emergency surgery in 12/2013 for GI bleed, started with Gleevec since 09/2013. Patient developed liver lesions in 01/2014 while off of Gleevec. Patient started ipilimumab and imatinib clinical trial, protocol [id number] on 05/15/2014. Most recently patient was on single agent Gleevec 400 mg daily until 09/28/2019. Clinical information and diagnostic information have been reviewed by Dr. Russell and discussed with the patient the following plans were formulated and discussed. She will remain off imatinib for now and will complete restaging with MRI AP + CXR in 4 months. She would like to think about , but as per last note: --- Dr. Russell discussed the nature of high-risk and difficulty in following her disease with imaging. Patient would like to talk with her boyfriend and will come up with a plan. Assessment & Plan (12/19/2019 2:29 PM CDT): Vicenta Vicente is a 34 y.o. 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 She was initially diagnosed in 2000, status post resection of the gastric gist, recurrence in 09/2013 followed by emergency surgery in 12/2013 for GI bleed, started with Gleevec since 09/2013. Patient developed liver lesions in 01/2014 while off of Gleevec. Patient started ipilimumab and imatinib clinical trial, protocol [id number] on 05/15/2014. Most recently patient was on single agent Gleevec 400 mg daily until 09/28/2019. Clinical information and diagnostic information have been reviewed by Dr. Russell and discussed with the patient the following plans were formulated and discussed. --- Dr. Russell discussed the nature of high-risk and difficulty in following her disease with imaging. Patient would like to talk with her boyfriend and will come up with a plan. If patient is staying off therapy, she will need scans every 3 months. We plan to bring her back to clinic in early 01/2020 with scan. We will also request for genetic testing. Encounters Date Type Department Care Team Description 06/14/2024 Orders Only [facility] [address] [place] [address], 9th Floor [address] [place], [place] [id number] Stanley Miller APRN Nausea and vomiting (Primary Dx); Gastrointestinal stromal tumor of small intestine 06/13/2024 Orders Only [facility] [address] [place] [address] Main [facility], 9th [place] [address] Paulina Russ MD Nausea and vomiting 06/13/2024 Refill [facility] [address] [place] [address] Main [facility], 9th Floor [address] [place], [place] [id number] Tasha Sampson PA-C Nausea after 12/24/2023 Immunizations Immunization Administration Dates Next Due Pfizer SARS-CoV-2 Vaccination (Purple Cap) 10/11,09/13/2020 Surgical History Surgery Date Site/Laterality Comments TOTAL GASTRECTOMY W/ DANIEL-EN-Y RECONSTRUCTION 12/25/2013 total gastrectomy with Daniel-en-Y esophagectomy, feeding jejunostomy, en block distal pancreatectomy, and splenectomy, RESECTION MASS PELVIC 03/21/2000 - 03/20/2001 Resection of gastrointestinal stromal tumor LUNG REMOVAL, PARTIAL 03/21/2002 - 03/20/2003 Resection left upper lobe blebs CYSTOSCOPY W/ LASER LITHOTRIPSY 04/21/2019 - 05/19/2019 X 2 Medical History Medical History Date Comments Gastrointestinal stromal tumor 2000 Spontaneous pneumothorax 2002 spontan eous left sided pneumothorax History of gastrointestinal bleed GI Bleed secondary to gastric GIST in 10/01 and 12/02 Stromal tumor of uncertain b ehavior of digestive system GI stromal tumor and chondro ma and Fernando triad Reactive hypoglycemia 07/18/2015 Renal stone Family History Medical History Relation Name Comments Hypertension Father Colon cancer Maternal Grandfather Brain cancer Other Bladder Cancer Paternal Grandfather Relation Name Status Comments Father Alive Half-Sister 1 Alive Half-Sister 2 Alive Half-Sister 3 Alive Half-Sister 4 Alive Maternal Aunt 1 Alive Maternal Aunt 2 Alive Maternal Cousin 1 Alive Maternal Cousin 2 Alive Maternal Grandfather Alive Maternal Grandmother (Age 70-75) Mother (Age 25) d.childbir th complications Other (Age 55) Paternal Aunt Alive Paternal Cousin 1 Alive Paternal Cousin 2 Alive Paternal Grandfather (Age 76) Paternal Grandmother (Age 75-80) d.2006 Paternal Uncle Alive Sister 1 Alive Sister 2 Alive Son Alive Social History Tobacco Use Types Packs/Day Years Used Date Smoking Tobacco: Never Smokeless Tobacco: Never Tobacco Cessation:Counseling Given: Not Answered Alcohol Use Standard Drinks/Week Comments No 0 (1 standard drink = 0.6 oz pur e alcohol) Comments No Sex and Gender Information Value Date Recorded Sex Assigned at Female 07/30/2019 9:00 PM CDT Legal Sex Female 4:36 PM BROKE BEATER Gender Identity Female 07/30/2019 9:00 PM CDT Sexual Orientation Straight 07/30/2019 9: 00 PM CDT Obstetrics History Para Term AB IAB SAB Ectopic Multiple Livin g Live Births 2 1 1 1 Date Outcome GA Total Labor Labor/2nd/3rd Weight Sex Type Anes PTL Dee Dee A1 A5 Name Clin Term Plan of Treatment Health Maintenance Due Date Last Done Comments COVID-19 Vaccine (3 - Pfizer risk series) 11/08/2020 10/11/2020, 09/13/2020 Influenza Vaccine (#1) 2024 Pneumococcal Vaccine Aged Out No long er eligible based on patient's age to complete this topic Insurance DUAL Y [address] [place] [address] DUAL Advance Directives * Full Code (Latest Code Status on File) Date Activated Date Inactivated Comments 11/18/2015 9:45 PM 11/19/2015 5:00 PM Care Teams Pulverizer Feeder Relationship Specialty Start Date End Date Jaya Torres MD PCP - External Primary Care Provider 12/24/13 Toshia Goetz MD [email or web address] PCP - External Referring 07/13/13 Dipak Dsouza MD [facility] [address] PCP - External Follow Up A 07/12/13 Toshia Goetz MD [email or web address] PCP - External Follow Up B 07/13/13 Elvin Gilbert MD [address] [place] [address] [email or web address] PCP - General Cancer Medicine 09/01/15 Elvia Zapata APRN [address] [place] [phone] [email or web address] Nurse Practitioner 05/28/15 Paulina Maldonado MD [address] [place] [phone] [email or web address] Physician 05/28/15 Case Longoria MD [address] [place] [address] [email or web address] Physician 05/28/15 Gini Russell MD [address] [place] [phone] [email or web address] Physician 05/28/15 Anamaria Wall MD [address] [place] [phone] [email or web address] Physician 05/28/15 Apryl Nelson MD [address] [place] [address] [email or web address] Physician 05/28/15 Colin Olivo MD [address] [place] [phone] [email or web address] Physician 05/28/15 Checo Levi MD [address] [place] [phone] [email or web address] Physician 05/28/15 Owen Alvarado MD [address] [place] [address] [email or web address] Physician 05/28/15 Damon Lamas MD [email or web address] Physician 05/28/15 Radha Larry MD [address] [place] [phone] [email or web address] Physician 05/28/15 Donna Mitchell NP [address] [place] [phone] [email or web address] Nurse Practitioner 05/28/15 Redd Coello MD [address] [place] [address] [phone] [email or web address] Physician 05/28/15 Pj Maddox MD [address] [place] [address] [phone] [email or web address] Physician 05/28/15 Ahmet Spear MD [address] [place] [address] [phone] [email or web address] Physician 05/28/15 Elvin Gilbert MD [email or web address] g Physician 05/28/15 Kenji Wild MD [address] [place] [address] [phone] [email or web address] Physician 05/28/15 Rosalinda Bone MD [address] [place] [address] [phone] [email or web address] Physician 05/28/15 Case Flores MD [address] [place] [address] [phone] [email or web address] Physician 05/28/15 Fox Esteves MD [address] [place] [address] [phone] [email or web address] Physician 05/28/15 Omar Lynn MD [address] [place] [phone] [email or web address] Physician 05/28/15 Stephanie Ray NP [email or web address] Nurse Practitioner 05/28/15 Jamee Quintanilla PA [address] [place] [address] 15[address] [email or web address] mathew Physician Loom Technician 05/28/15 Pepe Forbes PA [address] [place] [phone] [email or web address] Physician Loom Technician 05/28/15 Nilton Palomares MD [address] [place] [phone] [email or web address] Physician 05/28/15 Marcell Mixon MD [address] [place] [address] [phone] [email or web address] Physician 05/28/15 Tree Aj MD [address] [place] [phone] [email or web address] Physician 05/28/15 Quentin Arora MD [address] [place] [address] 12[address] [email or web address] Physician 05/28/15 Ghazala Saba APRN [address] [place] [address] [phone] [email or web address] Nurse Practitioner 05/28/15 Humza Resendez MD [address] [place] [address] [phone] [email or web address] Physician 05/28/15 Chandni Bone PA [address] [place] [address] 10275 [email or web address] Physician Loom Technician 05/28/15 Jackelyn Morrow MD [address] [place] [address] [phone] [email or web address] Physician 05/28/15 Vanessa Prado MD [address] [place] [phone] [email or web address] Physician 05/28/15 Machelle Ruiz PA [address] [place] [phone] [email or web address] Physician Loom Technician 05/28/15 Sherri Rothman [address] [place] [address] [phone] [email or web address] Research Coordinator Research 09/24/15 Joaquin Hamm MD [address] [place] [address] 48077 [email or web address] Consulting Physician Orthopedic Surgery 12/16/15 Joleen Correa MD [address] [place] [address] [phone] [email or web address] Consulting Physician Dermatology 10/27/22 Andrey Goff MD [address] [place] [address] [phone] [email or web address] Consulting Physician Infectious Diseases 06/09/17 Dale Briones MD [address] [place] [address] 96196 [email or web address] Consulting Physician Dermatology 01/09/16 Fredo Carey MD [address] [place] [address] [email or web address] Consulting Physician Hematology and Oncology 09/19/17 Myriam Boo PA [address] [place] [address] [email or web address] Physician Loom Technician Radiology 02/18/23 Whit Rangel PA-C [address] [place] [phone] [email or web address] mathew Physician Loom Technician Radiology 09/14/22
--- NOTE | 2024-12-23 15:55 | RAD REPORT ---
EXAM: Chest Single View HISTORY: 39 years Female edema COMPARISON: 10/08/2022 FINDINGS: LUNGS/PLEURA: No pleural effusions or pneumothorax. No pulmonary edema. Large calcified lung nodules CARDIAC/MEDIASTINUM: The cardiac silhouette is within normal limits. UPPER ABDOMEN: No significant abnormality. BONES: No acute abnormality. LINES/TUBES/OTHER: N/A IMPRESSION: No evidence of acute cardiopulmonary disease. Large calcified lung nodules likely reflecting sequela of remote granulomatous disease.
[2024-12-23 16:10] LABS: Hematocrit 29.1 % (36.0-45.0); Hemoglobin 8.8 g/dL (12.0-15.0); MCH 21.1 pg (27.0-35.0); MCHC 30.3 g/dL (32.0-36.0); MCV 69.5 fL (80-100); MPV 7.7 fL (7.6-11.3); Nucleated RBC Absolute Count 0.0 (0-0); Nucleated Red Blood Cells % 0.3 % (0-0); RBC Red Blood Cell Count 4.18 M/uL (3.86-4.86)
[2024-12-23 16:42] LABS: ALT/SGPT 36 U/L (13-56); AST/SGOT 25 U/L (15-37); Albumin 2.8 g/dL (3.4-5.0); Albumin/Globulin Ratio 0.7 (1.1-1.8); Alkaline Phosphatase 157 U/L (45-117); Anion Gap 9.7 mEq/L (5.0-15.0); BUN Blood Urea Nitrogen 16 mg/dL (7-18); C-Reactive Protein 50.10 mg/L (<3.00); Globulin 3.8 g/dL (2.3-3.5); Glucose Level 379 mg/dL (74-106); Magnesium 1.8 mg/dL (1.6-2.4); NT PRO-BNP 311 pg/mL (<125); Potassium 3.7 mEq/L (3.5-5.1); Troponin High Sensitivity 3.6 pg/mL (<58.9)
[2024-12-23 16:52] LABS: Bilirubin Indirect, Calculated 0.0 mg/dL (0.2-0.8)
[2024-12-23 17:08] LABS: Absolute Lymphocytes (CBC) 0.7 K/uL (0.7-4.9)
[2024-12-23 17:12] LABS: White Blood Count 8.50 thou/uL (4.3-10.9)
[2024-12-23 17:15] LABS: Anisocytosis 2+; Blood Morphology Comment NOTED (NOT SEEN); Burr Cells FEW; Hypochromasia 1+; Microcytosis 1+; Ovalocytes SLIGHT; Poikilocytosis 1+; White Blood Cell Scan OK (OK)
[2024-12-23] MEDS ORDERED: CLINDAMYCIN 600MG/D5W 50 ML IV ONE (17:44)
--- NOTE | 2024-12-23 17:53 | RAD REPORT ---
EXAMINATION: US LOWER EXTREMITY VENOUS DOPPLER BILATERAL CLINICAL INDICATION: Female, 39 years old.PAIN TECHNIQUE: Complete bilateral duplex sonography of the lower extremity veins was performed. The exami nation included compression for vein patency, color Doppler imaging and flow augmentation in response to distal compression of the distal external iliac, common femoral, femoral, popliteal, anila jacob, tibial and great saphenous veins. [id number]. COMPARISON: No prior exams FINDINGS: Duplex sonography imaging demonstrates all deep veins examined to be fully compressible with spontane ous, phasic and augmented flow bilaterally. The right and left greater saphenous veins at the level of the popliteal fossa have eccentric thickening along the vessel suh. They are incompletely compre ssible. IMPRESSION: No evidence of deep venous thrombosis seen in either lower extremity. Eccentric filling defects in the greater saphenous veins at the level of the popliteal fossa likely r eflecting chronic superficial venous thrombosis.
--- NOTE | 2024-12-23 17:56 | RAD REPORT ---
EXAM: Lower Extremity Arterial Bilat HISTORY: PAIN COMPARISON: None TECHNIQUE: Multiplanar grayscale and color Doppler images were obtained and a lower extremity arteria l ultrasound. Spectral analysis of the Doppler waveforms were performed. FINDINGS: Right lower extremity: Common femoral artery: Triphasic Superficial femoral artery: Triphasic Popliteal artery: Triphasic Posterior tibial artery: Monophasic Dorsalis pedis artery: Monophasic Left lower extremity: Common femoral artery: Triphasic Superficial femoral artery: Triphasic Popliteal artery: Triphasic Posterior tibial artery: Triphasic Dorsalis pedis artery: Triphasic IMPRESSION: No significant arterial abnormality of the right lower extremity. Monophasic flow in the left posterior tibial and dorsalis pedis arteries likely reflecting at least m oderate stenosis. Triphasic flow in the remaining vessels.
--- NOTE | 2024-12-23 18:19 | EDPHYS ---
Physician Documentation [facility] Name: Vicenta Vicente Age: 39 yrs Sex: Female : 1985 Arrival Date: 12/23/2024 Time: 14:41 Bed 17 Private MD: ED Physician Jaya Hendricks HPI: 12/23 15:25 This 39 yrs old Female presents to ER via Ambulatory with complaints of Leg Swelling - cp BILATERAL. 15:25 The patient presents with pain, that is acute. The complaints affect the left lower leg cp and right lower leg. Onset: The symptoms/episode began/occurred 3 day(s) ago. Associated signs and symptoms: Pertinent positives: erythema, pain, Pertinent negatives numbness. 15:25 Treatment prior to arrival includes: no previous treatment. Severity of symptoms: in cp the emergency department the symptoms are unchanged, despite home interventions. 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 - Infectious Disease History:: Denies. - Social history:: Smoking status: Patient denies any tobacco usage or history of. ROS: 15:30 Constitutional: Negative for body aches, chills, fever, poor PO intake, cp 15:30 Eyes: Negative for injury, pain, redness, and discharge, cp 15:30 Cardiovascular: Negative for chest pain, palpitations, 15:30 Respiratory: Negative for cough, shortness of breath, wheezing, 15:30 Abdomen/GI: Negative for abdominal pain, nausea, vomiting, and diarrhea, 15:30 MS/extremity: Positive for erythema, swelling, of the right lower leg and left lower leg, Negative for injury or acute deformity, decreased range of motion, paresthesias, 15:30 Neuro: Negative for altered mental status, dizziness, headache, numbness, weakness, 15:30 All other systems are negative, Exam: 15:33 Constitutional: The patient appears in no acute distress, alert, awake, cp non-diaphoretic, non-toxic, well developed, well nourished, 15:33 Head/Face: Normocephalic, atraumatic. cp 15:33 Eyes: Periorbital structures: appear normal, Conjunctiva: normal, no exudate, no injection, Sclera: no appreciated abnormality, Lids and lashes: appear normal, bilaterally, 15:33 ENT: External ear(s): are unremarkable, Nose: is normal, Mouth: Lips: moist, Oral mucosa: moist, Posterior pharynx: Airway: no evidence of obstruction, patent, 15:33 Chest/axilla: Inspection: normal, 15:33 Cardiovascular: Rate: normal, Rhythm: regular, 15:33 Respiratory: the patient does not display signs of respiratory distress, Respirations: normal, no use of accessory muscles, no retractions, labored breathing, is not present, Breath sounds: are clear throughout, no decreased breath sounds, no stridor, no wheezing, 15:33 Abdomen/GI: Inspection: scar(s), are noted in the midline, Palpation: abdomen is soft and non-tender, in all quadrants, 15:33 Musculoskeletal/extremity: swelling noted to bilateral lower legs, redness, tenderness to palpation. 15:33 Neuro: Orientation: to person, place \T\ time. Mentation: is normal, Motor: moves all fours, strength is normal, 15:53 ECG was reviewed by the Attending Physician. cp Vital Signs: 15:06 BP 122 / 73; Pulse 89; Resp 18; Temp 97.7(O); Pulse Ox 100% ; Weight 47.63 kg; Height 5 db ft. 5 in. ; 16:00 BP 123 / 88; Pulse 79; Resp 16; Pulse Ox 100% ; me1 17:00 BP 121 / 96; Pulse 81; Resp 18; Pulse Ox 96% ; me1 18:00 BP 129 / 87; Pulse 80; Resp 15; Temp 98.2; Pulse Ox 100% ; me1 15:06 Body Mass Index 17.47 (47.63 kg, 165.1 cm) db MDM: 15:05 Medical Screening Exam initiated cp 18:18 Data reviewed: vital signs, nurses notes, lab test result(s), EKG, radiologic studies, cp plain films, ultrasound. 18:18 Differential diagnosis: dvt, arterial occlusion, sepsis, cellulitis. I considered the cp following discharge prescriptions or medication management in the emergency department Medications were administered in the Emergency Department. See MAR. Independent interpretation of the following test(s) in the Emergency Department EKG: See my EKG interpretation above. Care significantly affected by the following chronic conditions: Diabetes, Cancer. Counseling: I had a detailed discussion with the patient and/or guardian regarding the historical points, exam findings, and any diagnostic results supporting the discharge/admit diagnosis, lab results, radiology results, the need for outpatient follow up, a family practitioner, vascular, to return to the emergency department if symptoms worsen or persist or if there are any questions or concerns that arise at home. Response to treatment: the patient's symptoms have mildly improved after treatment, and as a result, I will discharge patient. 12/23 15:20 Order name: Basic Metabolic Panel; Complete Time: 17:01 cp 12/23 17: Interpretation: Normal except: GLUC 379; CA 8.1. cp 12/23 15:20 Order name: CBC with Diff; Complete Time: 17:24 cp 12/23 17:24 Interpretation: Normal except: HGB 8.8; HCT 29.1; MCV 69.5; MCH 21.1; MCHC 30.3; PLT cp 473; RDW 24.4; LYM% 8.6; MN% 16.8; BASO% 2.5; MNA 1.4. 12/23 15:20 Order name: LFT's; Complete Time: 17:01 cp 12/23 17:02 Interpretation: Normal except: ALK 157; IBILI, CALC 0.0; ALB 2.8; GLOB 3.8; A/G 0.7. cp 12/23 15:20 Order name: Magnesium; Complete Time: 17:01 cp 12/23 15:20 Order name: NT PRO-BNP; Complete Time: 17:01 cp 12/23 15:20 Order name: Troponin HS; Complete Time: 17:01 cp 12/23 15:20 Order name: CRP; Complete Time: 17:01 cp 12/23 17:02 Interpretation: Abnormal: C-REACTIVE PROT 50.10. cp 12/23 15:20 Order name: Lactate w/ 2H reflex if indic.; Complete Time: 17:01 cp 12/23 15:20 Order name: Blood Culture Adult (2) cp 12/23 17:14 Order name: CBC Smear Scan; Complete Time: 17:24 EDMS 12/23 15:20 Order name: XRAY Chest (1 view); Complete Time: 17:01 cp 12/23 15:20 Order name: Lower Extremity Arterial Bilat US; Complete Time: 17:57 cp 12/23 15:20 Order name: Extremity Venous W Compression Bilateral US; Complete Time: 17:57 cp 12/23 18:01 Interpretation: Report reviewed. cp 12/23 15:20 Order name: Cardiac monitoring; Complete Time: 15:50 cp 12/23 15:20 Order name: EKG - Nurse/Tech; Complete Time: 15:50 cp 12/23 15:20 Order name: IV Saline Lock; Complete Time: 15:49 cp 12/23 15:20 Order name: Labs collected and sent; Complete Time: 15:49 cp 12/23 15:20 Order name: O2 Per Protocol; Complete Time: 15:49 cp 12/23 15:20 Order name: O2 Sat Monitoring; Complete Time: 15:49 cp EC:53 Rate is 75 beats/min. Rhythm is regular. NM interval is normal. QRS interval is normal. cp QT interval is normal. T waves are Inverted in leads aVL, aVR. Interpreted by me. Reviewed by me. 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 - Other specified peripheral vascular diseases - Left Posterior Tibial and Dorsalis cp Pedis Arteries(12/23/24 18:20) - Diabetes mellitus due to underlying condition with hyperglycemia cp Followup: cp - With: Private Physician - When: 2 - 3 days - Reason: Recheck today's complaints Discharge Instructions: - Discharge Summary Sheet cp - Cellulitis, Adult cp - Hyperglycemia cp - Peripheral Vascular Disease cp - Blood Glucose Monitoring, Adult cp - Diabetes Mellitus and Nutrition, Adult cp - Aspirin and Your Heart cp - Venous Thromboembolism Prevention cp Forms: - Medication Reconciliation Form cp - Antibiotic Education cp - Prescription Opioid Use cp - Patient Portal Instructions cp - Leadership Thank You Letter cp Prescriptions: - Clindamycin HCl 300 mg Oral Capsule - take 1 capsule ORAL route every 6 hours for 10 days; 40 capsule; Refills: 0, cp Product Selection Permitted Signatures: Dispatcher [employer] EDMS Jaya Kidd PA-C PA-C cp Benton, Danielle, RN RN db Kaur Beltran RN RN me1 Corrections: (The following items were deleted from the chart) 15:20 15:20 BASIC METABOLIC PANEL+C.LAB.BRZ ordered. EDMS EDMS 15:20 15:20 CBC+H.LAB.BRZ ordered. EDMS EDMS 15:20 15:20 HEPATIC FUNCTION+C.LAB.BRZ ordered. EDMS EDMS 15:20 15:20 MAGNESIUM+C.LAB.BRZ ordered. EDMS EDMS 15:20 15:20 PROBNP+C.LAB.BRZ ordered. EDMS EDMS 15:20 15:20 Troponin High Sensitivity+C.LAB.BRZ ordered. EDMS EDMS 15:20 15:20 C-REACTIVE PROTEIN+C.LAB.BRZ ordered. EDMS EDMS 15:20 15:20 LACTATE+C.LAB.BRZ ordered. EDMS EDMS 15:20 15:20 BLOOD CULTURE*+BA.LAB.BRZ ordered. EDMS EDMS 15:21 15:21 Chest Single View+RAD.RAD.BRZ ordered. EDMS EDMS 15:21 15:21 Lower Extremity Arterial Bilat+US.RAD.BRZ ordered. EDMS EDMS 15:21 15:21 Extrem Venous W Compression Xochitl+US.RAD.BRZ ordered. EDMS EDMS 17:14 16:30 Manual Differential ordered. EDMS EDMS 17:24 17:02 Normal except: HGB 8.8; HCT 29.1; MCV 69.5; MCH 21.1; MCHC 30.3; PLT 473; RDW cp 24.4. cp 18:20 18:18 Other specified peripheral vascular diseases cp cp
--- NOTE | 2024-12-23 18:19 | ER ---
Nurse's Notes [facility] Name: Vicenta Vicente Age: 39 yrs Sex: Female : 1985 Arrival Date: 12/23/2024 Time: 14:41 Bed 17 Private MD: Diagnosis: Cellulitis of right lower limb;Cellulitis of left lower limb;Chronic embolism and thrombosis of other specified veins-bilateral Great Saphenous Veins of Lower Extremities;Other specified peripheral vascular diseases-Left Posterior Tibial and Dorsalis Pedis Arteries;Diabetes mellitus due to underlying condition with hyperglycemia Presentation: 12/23 15:06 Chief complaint: Patient states: BILATERAL LOWER LEG SWELLING AND CELLULITIS X 3 DAYS. db Coronavirus screen: Client denies travel out of the [place] in the last 14 days. At this time, the client does not indicate any symptoms associated with coronavirus-19. Ebola Screen: Patient negative for fever greater than or equal to 101.5 degrees Fahrenheit, and additional compatible Ebola Virus Disease symptoms Patient denies exposure to infectious person. Patient denies travel to an Ebola-affected area in the 21 days before illness onset. No symptoms or risks identified at this time. Initial Sepsis Screen: Does the patient meet any 2 criteria? No. Patient's initial sepsis screen is negative. Does the patient have a suspected source of infection? No. Patient's initial sepsis screen is negative. Risk Assessment: Do you want to hurt yourself or someone else? Patient reports no desire to harm self or others. Onset of symptoms was December 20, 2024. 15:06 Method Of Arrival: Ambulatory db 15:06 Acuity: JOHN 3 db Triage Assessment: 15:08 General: Appears in no apparent distress. comfortable, Behavior is calm, cooperative. db Pain: Complains of pain in right leg and left leg. 15:09 Neuro: Level of Consciousness is awake, alert, obeys commands, Oriented to person, db place, time, situation. Respiratory: Airway is patent Respiratory effort is even, unlabored, Respiratory pattern is regular, symmetrical. Derm: Rash noted that is red, on right leg and left leg. 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 - Infectious Disease History:: Denies. - Social history:: Smoking status: Patient denies any tobacco usage or history of. Screenin:15 [facility] ED Fall Risk Assessment (Adult) History of falling in the last 3 months, me1 including since admission No falls in past 3 months (0 pts) Confusion or Disorientation No (0 pts) Intoxicated or Sedated No (0 pts) Impaired Gait No (0 pts) Mobility Assist Device Used No (0 pt) Altered Elimination No (0 pt) Score/Fall Risk Level 0 - 2 = Low Risk Maintained a safe environment, Provided non-skid footwear, Hourly rounding (assess needs \T\ fall precautionary measures) done. Abuse screen: Denies threats or abuse. Nutritional screening: No deficits noted. Tuberculosis screening: No symptoms or risk factors identified. Assessment: 15:15 General: Appears in no apparent distress. well groomed, well developed, well nourished, me1 Behavior is calm, cooperative, appropriate for age, Reports BILATERAL LOWER LEG SWELLING AND CELLULITIS X 3 DAYS. Pain: Denies pain. Neuro: Level of Consciousness is awake, alert, obeys commands, Oriented to person, place, time, situation, Appropriate for age. Cardiovascular: Patient's skin is warm and dry. Respiratory: Airway is patent Respiratory effort is even, unlabored, Respiratory pattern is regular, symmetrical. GI: No signs and/or symptoms were reported involving the gastrointestinal system. : No signs and/or symptoms were reported regarding the genitourinary system. EENT: No signs and/or symptoms were reported regarding the EENT system. Derm: Skin is healthy with good turgor, Skin is normal, Wound noted left leg and right leg Wound is red, swollen Reports. Musculoskeletal: Circulation, motion, and sensation intact. Range of motion: intact in all extremities, Swelling present in left leg and right leg. Vital Signs: 15:06 BP 122 / 73; Pulse 89; Resp 18; Temp 97.7(O); Pulse Ox 100% ; Weight 47.63 kg; Height 5 db ft. 5 in. ; 16:00 BP 123 / 88; Pulse 79; Resp 16; Pulse Ox 100% ; me1 17:00 BP 121 / 96; Pulse 81; Resp 18; Pulse Ox 96% ; me1 18:00 BP 129 / 87; Pulse 80; Resp 15; Temp 98.2; Pulse Ox 100% ; me1 15:06 Body Mass Index 17.47 (47.63 kg, 165.1 cm) db ED Course: 14:44 Patient arrived in ED. sj2 14:50 [facility] cp 14:50 Jaya Hendricks MD is Attending Physician. cp 15:08 Triage completed. db 15:09 Arm band placed on right wrist. Patient placed in waiting room. db 15:15 Kaur Beltran, RN is Primary Nurse. me1 15:15 Patient has correct armband on for positive identification. Bed in low position. Call me1 light in reach. Side rails up X2. Provided Education on: POC. Verbalized understanding.. Client placed on continuous cardiac and pulse oximetry monitoring. NIBP monitoring applied. nuclear monitoring technician on. Pulse ox on. NIBP on. 15:15 No provider procedures requiring assistance completed. me1 15:44 Initial lab(s) drawn, by ca, sent to lab. First set of blood cultures drawn by ca. me1 15:46 XRAY Chest (1 view) In Process Unspecified. EDMS 15:48 Inserted saline lock: 22 gauge in left antecubital area, using aseptic technique. me1 15:48 Blood Culture Adult (2) Sent. me1 15:48 Lactate w/ 2H reflex if indic. Sent. me1 15:49 CRP Sent. me1 15:49 Basic Metabolic Panel Sent. me1 15:49 CBC with Diff Sent. me1 15:49 LFT's Sent. me1 15:49 Magnesium Sent. me1 15:49 NT PRO-BNP Sent. me1 15:49 Troponin HS Sent. me1 15:50 EKG done, by cardiac catheterization technologist. reviewed by Jaya Kidd PA-C. ts3 15:53 Second set of blood cultures drawn by ca. me1 17:28 Lower Extremity Arterial Bilat US In Process Unspecified. EDMS 17:28 Extremity Venous W Compression Bilateral US In Process Unspecified. EDMS 18:33 IV discontinued, intact, bleeding controlled, No redness/swelling at site. Pressure me1 dressing applied. Administered Medications: 17:45 Drug: Clindamycin IVPB 600 mg IVPB once over 30 mins; (mix in 50 mL) Route: IVPB; me1 Infused Over: 30 mins; Site: left antecubital; 18:22 Follow up: Response: No adverse reaction; IV Status: Completed infusion; IV Intake: [id number] Medication: 15:15 VIS not applicable for this client. me1 Intake: 18:22 IV: 50ml; Total: 50ml. me1 Outcome: 18:18 Discharge ordered by MD. cp 18:33 Discharged to home ambulatory, me1 18:33 Condition: stable 18:33 Discharge instructions given to patient, family, Instructed on discharge instructions, follow up and referral plans. medication usage, Demonstrated understanding of instructions, follow-up care, medications, Prescriptions given X 1, 18:34 Patient left the ED. me1 Signatures: Dispatcher [employer] EDMS Jaya Kidd, PA-C PA-C Julienne Osborn, RN RN db Kaur Beltran RN RN me1 Rupa Whitaker sj2 Ashwini Chandler ts3 Corrections: (The following items were deleted from the chart) 15:09 15:08 General: Appears in no apparent distress. comfortable, Behavior is calm, db cooperative, db 16:42 15:06 Chief complaint: Patient states: BILATERAL LOWER LEG SWELLING AND CELLULITIS X 3 me1 DAYS db
[2024-12-23 19:15] VITALS: BP 129/87; TEMP 98.2; O2SAT 100
== END 2024-12-23 18:34 | disposition home or self-care (01) ==
LOC: ER 14:41
DX: L03.116 Cellulitis of left lower limb (principal); L03.115 Cellulitis of right lower limb; I82.493 Acute embolism and thrombosis of other specified deep vein of lower extremity, bilateral; I73.89 Other specified peripheral vascular diseases; E08.65 Diabetes mellitus due to underlying condition with hyperglycemia
CPT/HCPCS: 36415; 71045; 80048; 80076; 83605; 83735; 83880; 84484; 85025; 86140; 87040; 93005; 93925; 93970; 96365; 99285

== ENCOUNTER 2025-01-04 17:13 | Emergency (ER) | payer OTHER ==
--- OUTSIDE RECORDS SUMMARY | 2025-01-04 17:18 | XMS REPORT | Clinical Summary ---
Author Name Unknown Organization [facility] Address [address] [place] [address] Care Team Providers Care Truckload Checker Name Role Phone Jaya Torres MD Unavailable [phone] Toshia Goetz MD Unavailable [phone] Dipak Dsouza MD Unavailable [phone] Toshia Goetz MD Unavailable [phone] Elvia Zapata APRN Unavailable [phone] Paulina Maldonado MD Unavailable [phone] Case Longoria MD Unavailable [phone] Gini Russell MD Unavailable [phone] Anamaria Wall MD Unavailable [phone] Apryl Nelson MD Unavailable [phone] Colin Olivo MD Unavailable Checo Levi MD Unavailable [phone] Owen Alvarado MD Unavailable [phone] Damon Lamas MD Unavailable [email or web address] Radha Larry MD Unavailable Donna Mitchell WOOD BARREL RECONDITIONER Unavailable Redd Coello MD Unavailable Pj Maddox MD Unavailable [phone] Ahmet Spear MD Unavailable Elvin Gilbert MD Unavailable [email or web address] Kenji Wild MD Unavailable Rosalinda Bone MD Unavailable Case Flores MD Unavailable Fox Esteves MD Unavailable [phone] Omar Lynn MD Unavailable [phone] Stephanie Ray WOOD BARREL RECONDITIONER Unavailable [email or web address] Jamee Quintanilla PA Unavailable Pepe Forbes PA Unavailable [phone] Nilton Palomares MD Unavailable Marcell Mixon MD Unavailable [phone] Tree Aj MD Unavailable Quentin Arora MD Unavailable Ghazala Saba APRN Unavailable [phone] [facility] bal[facility]zar MD Unavailable Chandni Bone PA Unavailable Jackelyn Morrow MD Unavailable [phone] Vanessa Prado MD Unavailable Machelle Ruiz PA Unavailable [phone] Elvin Gilbert MD Primary Care Provider [email or web address] Rothman, Ly M Unavailable [email or web address] Joaquin Hamm MD Unavailable Joleen Correa MD Unavailable Andrey Goff MD Unavailable [phone] Dale Briones MD Unavailable Fredo Carey MD Unavailable [phone] Myriam Boo Unavailable [phone] Whit Rangel PA-C Unavailable [phone] Allergies Active Allergy Reactions Criticality Noted Date [...] job now. Was on Metformin and Januvia- NC ed 2 months ago (Last refill for [...] with PCP/endocrine. . Refused for referral at [facility]. Patient will continue Gleevec 400 mg daily, [...] Vicente is a 35 y.o. 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 She was initially diagnosed in 2000, status post resection of the gastric gist, recurrence in 09/2013 followed by emergency surgery in 12/2013 for GI bleed, started with Gleevec since 09/2013. Patient developed liver lesions in 01/2014 while off of Gleevec. Patient started ipilimumab and imatinib clinical trial, protocol [id number] on 05/15/2014. Most recently patient was on [...] clinic. 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 She was initially diagnosed in 2000, status post resection of the gastric gist, recurrence in 09/2013 followed by emergency surgery in 12/2013 for GI bleed, started with Gleevec since 09/2013. Patient developed liver lesions in 01/2014 while off of Gleevec. Patient started ipilimumab and imatinib clinical trial, protocol [id number] on 05/15/2014. Most recently patient was on [...] Vicente is a 34 y.o. 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 She was initially diagnosed in 2000, status post resection of the gastric gist, recurrence in 09/2013 followed by emergency surgery in 12/2013 for GI bleed, started with Gleevec since 09/2013. Patient developed liver lesions in 01/2014 while off of Gleevec. Patient started ipilimumab and imatinib clinical trial, protocol [id number] on 05/15/2014. Most recently patient was on [...] Orders Only [facility] [address] [place] [address], [address]th [address] [place], [place] [id number] Stanley Miller APRN Nausea and vomiting (Primary Dx); Gastrointestinal stromal tumor of small intestine 06/13/2024 Orders Only [facility] [address] [place] [address] Main [facility], 9th [place] [address] Paulina Russ MD Nausea and vomiting 06/13/2024 Refill [facility] [address] [place] [address] Main [facility], 9th Floor [address] [place], [place] [id number] Tasha Sampson PA-C Nausea after 01/05/2024 Immunizations Immunization Administration Dates Next Due Pfizer [...] PM CDT Legal Sex Female 4:36 PM DIRECTOR [employer]IVATE [employer]ER[employer] AGENCY Gender Identity Female 07/30/2019 9:00 PM CDT [...] this topic Insurance DUAL Y [address] [place] [address] DUAL Advance Directives * Full Code (Latest Code Status on File) Date Activated Date Inactivated Comments 11/18/2015 9:45 PM 11/19/2015 5:00 PM Care Teams Truckload Checker Relationship Specialty Start Date End Date Jaya Torres MD PCP - External Primary Care Provider 12/24/13 Toshia Goetz MD [email or web address] PCP - External Referring 07/13/13 Dipak Dsouza MD [facility] [address] PCP - External Follow Up A 07/12/13 Toshia Goetz MD [email or web address] PCP - External Follow Up B 07/13/13 Elvin Gilbert MD [address] [place] [address] [email or web address] PCP - General Cancer Medicine 09/01/15 Elvia Zapata APRN [address] [place] [address] [email or web address] Nurse Practitioner 05/28/15 Paulina Maldonado MD [address] [place] [address] [email or web address] Physician 05/28/15 Case Longoria MD [address] [place] [address] [email or web address] Physician 05/28/15 Gini Russell MD [address] [place] [address] [email or web address] Physician 05/28/15 Anamaria Wall MD [address] [place] [address] [email or web address] Physician 05/28/15 Apryl Nelson MD [address] [place] [address] [email or web address] Physician 05/28/15 Colin Olivo MD [address] [place] [address] [email or web address] Physician 05/28/15 Checo Levi MD [address] [place] [address] [email or web address] Physician 05/28/15 Owen Alvarado MD [address] [place] [address] [email or web address] Physician 05/28/15 Damon Lamas MD [email or web address] Physician 05/28/15 Radha Larry MD [address] [place] [address] [email or web address] Physician 05/28/15 Donna Mitchell NP [address] [place] [address] [email or web address] Nurse Practitioner 05/28/15 Redd Coello MD [address] [place] [address] [email or web address] Physician 05/28/15 Pj Maddox MD [address] [place] [address] [email or web address] Physician 05/28/15 Ahmet Spear MD [address] [place] [address] [email or web address] Physician 05/28/15 Elvin Gilbert MD [email or web address] Physician 05/28/15 Kenji Wild MD [address] [place] [address] [email or web address] Physician 05/28/15 Rosalinda Bone MD [address] [place] [address] [email or web address] Physician 05/28/15 Case Flores MD [address] [place] [address] [email or web address] Physician 05/28/15 Fox Esteves MD [address] [place] [address] [email or web address] Physician 05/28/15 Omar Lynn MD [address] [place] [address] [email or web address] Physician 05/28/15 Stephanie Ray NP [email or web address] Nurse Practitioner 05/28/15 Jamee Quintanilla PA [address] [place] [id number] [email or web address] Physician Barnworker Groom 05/28/15 Pepe Forbes PA [address] [place] [address] [email or web address] Physician Barnworker Groom 05/28/15 Nilton Palomares MD [address] [place] [address] [email or web address] Physician 05/28/15 Marcell Mixon MD [address] [place] [address] [email or web address] Physician 05/28/15 Tree Aj MD [address] [place] [address] [email or web address] Physician 05/28/15 Quentin Arora MD [address] [place] [address] [email or web address] Physician 05/28/15 Ghazala Saba APRN [address] [place] [address] [email or web address] Nurse Practitioner 05/28/15 Humza Resendez MD [address] [place] [address] [email or web address] Physician 05/28/15 Chandni Bone PA [address] [place] [address] [email or web address] Physician Barnworker Groom 05/28/15 Jackelyn Morrow MD [address] [place] [address]47[address] [email or web address] Physician 05/28/15 Vanessa Prado MD [address] [place] [id number] [email or web address] Physician 05/28/15 Machelle Ruiz PA [address] [place] [address] [email or web address] Physician Barnworker Groom 05/28/15 Sherri Rothman [address] [place] [address] [email or web address] Research Coordinator Research 09/24/15 Joaquin Hamm MD [address] [place] [address] [email or web address] Consulting Physician Orthopedic Surgery 12/16/15 Joleen Correa MD [address] [place] [address] [email or web address] Consulting Physician Dermatology 10/27/22 Andrey Goff MD [address] [place] [address] [email or web address] Consulting Physician Infectious Diseases 06/09/17 Dale Briones MD [address] [place] [address] [email or web address] Consulting Physician Dermatology 01/09/16 Fredo Carey MD [address] [place] [address] [email or web address] Consulting Physician Hematology and Oncology 09/19/17 Myriam Boo PA [address] [place] [address] [email or web address] Physician Barnworker Groom Radiology 02/18/23 Whit Rangel PA-C [address] [place] [id number] [email or web address] Physician Barnworker Groom Radiology 09/14/22
[2025-01-04 18:39] LABS: Hematocrit 29.8 % (36.0-45.0); Hemoglobin 8.6 g/dL (12.0-15.0); MCH 19.6 pg (27.0-35.0); MCHC 28.8 g/dL (32.0-36.0); MCV 68.2 fL (80-100); MPV 7.2 fL (7.6-11.3); Nucleated RBC Absolute Count 0.1 (0-0); Nucleated Red Blood Cells % 0.8 % (0-0); RBC Red Blood Cell Count 4.37 M/uL (3.86-4.86); White Blood Count 10.50 thou/uL (4.3-10.9)
[2025-01-04 18:48] LABS: PT Prothrombin Time 10.3 SECONDS (10-13.0); PTT, Activated Partial Thromb 29.1 SECONDS (27.2-37.4); Protime INR 0.91
[2025-01-04 18:58] LABS: ALT/SGPT 29 U/L (13-56); AST/SGOT 15 U/L (15-37); Albumin 3.1 g/dL (3.4-5.0); Albumin/Globulin Ratio 0.8 (1.1-1.8); Alkaline Phosphatase 165 U/L (45-117); Anion Gap 9.1 mEq/L (5.0-15.0); BUN Blood Urea Nitrogen 22 mg/dL (7-18); Globulin 3.7 g/dL (2.3-3.5); Glucose Level 307 mg/dL (74-106); Magnesium 1.9 mg/dL (1.6-2.4); Potassium 4.1 mEq/L (3.5-5.1); Troponin High Sensitivity 3.7 pg/mL (<58.9)
--- NOTE | 2025-01-04 18:58 | RAD REPORT ---
EXAMINATION: ONE VIEW CHEST XR CLINICAL INDICATION: Female, 39 years old.,fatigue TECHNIQUE: Frontal chest projection is submitted. Examination is limited by patient positioning and t echnique. COMPARISON: 12/23/2024 FINDINGS: The lungs are well inflated and clear apart from multiple calcified pulmonary masses more abundant on the right. No pneumothorax or sizable effusion. The heart is normal in size. Mediastinal contours are unremarkable. IMPRESSION: No acute intrathoracic abnormalities.
[2025-01-04 19:00] LABS: Bilirubin Indirect, Calculated 0.0 mg/dL (0.2-0.8)
[2025-01-04 19:22] LABS: Absolute Lymphocytes (CBC) 2.5 K/uL (0.7-4.9)
[2025-01-04 20:11] LABS: Ferritin 4.3 ng/mL (8-252); Iron 14.0 ug/dL (50-170); Thyroid Stimulating Hormone 0.858 uIU/mL (0.358-3.740); Transferrin 318.0 mg/dL (200-360)
--- NOTE | 2025-01-04 21:03 | ER ---
Nurse's Notes [facility] Name: Vicenta Vicente Age: 39 yrs Sex: Female : 1985 Arrival Date: 01/04/2025 Time: 17:13 Bed 2 Private MD: Diagnosis: Iron deficiency anemia, unspecified;Other malaise and fatigue Presentation: 01/04 17:39 Chief complaint: Chief complaint: Patient states: "I have no energy and I've been aa5 craving ice chips, I think my blood count is low again". Pt reports symptoms began months ago but it's gradually getting worse. 17:39 Onset of symptoms was 2024. aa5 17:39 Acuity: JOHN 2 aa5 17:39 Coronavirus screen: At this time, the client does not indicate any symptoms associated aa5 with coronavirus-19. Ebola Screen: Patient denies travel to an Ebola-affected area in the 21 days before illness onset. Initial Sepsis Screen: Does the patient meet any 2 criteria? HR > 90 bpm. Does the patient have a suspected source of infection? No. Patient's initial sepsis screen is negative. Risk Assessment: Do you want to hurt yourself or someone else? Patient reports no desire to harm self or others. 17:39 Method Of Arrival: Ambulatory aa5 AREA DEVELOPMENT CONSULTANT: 21:36 Not tb4 Historical: - Allergies: 17:43 Latex; aa5 - PMHx: 17:43 cellulitis xochitl feet; diabetes mellitus; GIST; stomach cancer; Anemia; aa5 - PSHx: 17:43 tumor removal from stomach; liver and lungs; aa5 - Immunization history:: Adult Immunizations unknown. - Infectious Disease History:: Denies. - Social history:: Smoking status: Patient denies any tobacco usage or history of. Screenin:34 [facility] ED Fall Risk Assessment (Adult) History of falling in the last 3 months, tb4 including since admission No falls in past 3 months (0 pts) Confusion or Disorientation No (0 pts) Intoxicated or Sedated No (0 pts) Impaired Gait No (0 pts) Mobility Assist Device Used No (0 pt) Altered Elimination No (0 pt) Score/Fall Risk Level 0 - 2 = Low Risk Maintained a safe environment. Abuse screen: Denies threats or abuse. Denies injuries from another. Nutritional screening: No deficits noted. Tuberculosis screening: No symptoms or risk factors identified. Assessment: 19:00 General: Appears in no apparent distress. uncomfortable, slender, well groomed, well vc1 developed, well nourished, Behavior is calm, cooperative, appropriate for age. General: Reports fatigue for. Pain: Denies pain. Neuro: Level of Consciousness is awake, alert, obeys commands, Oriented to person, place, time, situation, Appropriate for age. Cardiovascular: Heart tones S1 S2 present Patient's skin is warm and dry. Respiratory: Airway is patent Respiratory effort is even, unlabored, Respiratory pattern is regular, symmetrical. GI: Abdomen is flat, non-distended. : No deficits noted. No signs and/or symptoms were reported regarding the genitourinary system. EENT: No deficits noted. No signs and/or symptoms were reported regarding the EENT system. Derm: Skin is intact, is healthy with good turgor, Skin is dry, Skin is pale, Skin temperature is cool. Musculoskeletal: Circulation, motion, and sensation intact. Range of motion: intact in all extremities. 20:18 Reassessment: Patient appears in no apparent distress at this time. No changes from vc1 previously documented assessment. Patient and/or family updated on plan of care and expected duration. Pain level reassessed. Patient is alert, oriented x 3, equal unlabored respirations, skin warm/dry/pink. 21:00 Reassessment: Patient appears in no apparent distress at this time. No changes from vc1 previously documented assessment. Patient and/or family updated on plan of care and expected duration. Pain level reassessed. Patient is alert, oriented x 3, equal unlabored respirations, skin warm/dry/pink. Vital Signs: 17:39 BP 135 / 80; Pulse 95; Resp 18 S; Temp 98(O); Pulse Ox 98% on R/A; Weight 43.09 kg (R); aa5 Height 5 ft. 5 in. (R); 19:00 BP 135 / 89; Pulse 93; Resp 18; Pulse Ox 98% ; vc1 20:00 BP 132 / 77; Pulse 98; Resp 18; Pulse Ox 98% ; vc1 21:00 BP 124 / 84; Pulse 80; Resp 16; Pulse Ox 97% ; vc1 17:39 Body Mass Index 15.81 (43.09 kg, 165.1 cm) aa5 ED Course: 17:18 Patient arrived in ED. cj3 17:23 [facility]idd PA-C [facility]. cp 17:23 Jaya Hendricks MD is Attending Physician. cp 17:39 Arm band placed on Patient placed in an exam room, on a stretcher. aa5 17:46 Triage completed. aa5 17:53 Dennys Nguyen, RN is Primary Nurse. cf3 18:21 XRAY Chest (1 view) In Process Unspecified. EDMS 18:39 EKG done, by ED staff, reviewed by Jaya Kidd PA-C. em1 21:15 IV discontinued, intact, bleeding controlled, No redness/swelling at site. Pressure hw dressing applied. 21:34 Patient has correct armband on for positive identification. Bed in low position. Call tb4 light in reach. Side rails up X 1. Client placed on continuous cardiac and pulse oximetry monitoring. NIBP monitoring applied. awake overnight monitor on. 21:36 Provided Education on: Take medication as prescribed. tb4 21:36 No provider procedures requiring assistance completed. tb4 21:37 IV discontinued, intact, bleeding controlled, No redness/swelling at site. Pressure tb4 dressing applied. Administered Medications: No medications were administered Medication: 21:36 VIS not applicable for this client. tb4 Outcome: 21:02 Discharge ordered by MD. cp 21:35 Discharged to home ambulatory, tb4 21:35 Condition: stable 21:35 Discharge instructions given to patient, Instructed on discharge instructions, follow up and referral plans. Demonstrated understanding of instructions, follow-up care, medications, Prescriptions given X 1, 21:37 Patient left the ED. tb4 Signatures: Dispatcher [employer] EDMS Perico Alvarado em1 Aurelia Doherty, RN RN aa5 Jaya Kidd PA-C PA-C cp Calcote, Vanessa, RN RN vc1 Gloria Kirby Celeste cj3 Clarisse Barnes RN RN tb4 Dennys Nguyen, RN RN cf3 Corrections: (The following items were deleted from the chart) 17:44 17:43 PSHx: tumor removal from stomach; aa5 aa5 17:47 17:39 Chief complaint: aa5 aa5
--- NOTE | 2025-01-04 21:03 | EDPHYS ---
Physician Documentation [facility] Name: Vicenta Vicente Age: 39 yrs Sex: Female : 1985 Arrival Date: 01/04/2025 Time: 17:13 Bed 2 Private MD: MICHAEL Physician Jaya Hendricks HPI: 01/04 17:55 This 39 yrs old Female presents to ER via Ambulatory with complaints of Fatigue. cp 17:55 Patient presents to ED with c/o fatigue that started months ago and has been getting cp worse. Patient reports PMHX significant for anemia that required iron therapy and blood transfusion. Patient denies vaginal bleeding, denies blood in stools and/or black stools. 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 - Infectious Disease History:: Denies. - Social history:: Smoking status: Patient denies any tobacco usage or history of. ROS: 18:00 Eyes: Negative for injury, pain, redness, and discharge, cp 18:00 Constitutional: Positive for fatigue, Negative for body aches, chills, fever, 18:00 Cardiovascular: Negative for chest pain, 18:00 Respiratory: Negative for cough, shortness of breath, wheezing, 18:00 Abdomen/GI: Negative for abdominal pain, black/tarry stool, rectal bleeding, 18:00 : Negative for urinary symptoms, vaginal bleeding, 18:00 Neuro: Positive for weakness, 18:00 All other systems are negative, Exam: 18:05 Constitutional: The patient appears in no acute distress, alert, awake, cp non-diaphoretic, non-toxic, well developed, well nourished, 18:05 Head/Face: Normocephalic, atraumatic. cp 18:05 Eyes: Periorbital structures: appear normal, Conjunctiva: normal, no exudate, no injection, Sclera: no appreciated abnormality, Lids and lashes: appear normal, bilaterally, 18:05 ENT: External ear(s): are unremarkable, Nose: is normal, Mouth: Lips: moist, Oral mucosa: moist, Posterior pharynx: Airway: no evidence of obstruction, patent, 18:05 Chest/axilla: Inspection: normal, 18:05 Cardiovascular: Rate: normal, Rhythm: regular, Edema: is not appreciated, JVD: is not appreciated, 18:05 Respiratory: the patient does not display signs of respiratory distress, Respirations: normal, no use of accessory muscles, no retractions, labored breathing, is not present, Breath sounds: are clear throughout, no decreased breath sounds, no stridor, no wheezing, 18:05 Abdomen/GI: Inspection: abdomen appears normal, Palpation: abdomen is soft and non-tender, in all quadrants, 18:05 Back: pain, is absent, ROM is normal, 18:05 Neuro: Orientation: to person, place \T\ time. Mentation: is normal, Cerebellar function: is grossly normal, Motor: moves all fours, strength is normal, Sensation: is normal, 18:42 ECG was reviewed by the Attending Physician. cp Vital Signs: 17:39 BP 135 / 80; Pulse 95; Resp 18 S; Temp 98(O); Pulse Ox 98% on R/A; Weight 43.09 kg (R); aa5 Height 5 ft. 5 in. (R); 19:00 BP 135 / 89; Pulse 93; Resp 18; Pulse Ox 98% ; vc1 20:00 BP 132 / 77; Pulse 98; Resp 18; Pulse Ox 98% ; vc1 21:00 BP 124 / 84; Pulse 80; Resp 16; Pulse Ox 97% ; vc1 17:39 Body Mass Index 15.81 (43.09 kg, 165.1 cm) aa5 MDM: 17:39 Medical Screening Exam initiated cp 21:01 Data reviewed: vital signs, nurses notes, lab test result(s), EKG, radiologic studies, cp plain films, and as a result, I will discharge patient. 21:01 Differential diagnosis: viral Infection, bacterial infection, pneumonia anemia, GI cp bleed. Independent interpretation of the following test(s) in the Emergency Department EKG: See my EKG interpretation above X-Ray: My interpretation is chest image negative for infiltrates. Counseling: I had a detailed discussion with the patient and/or guardian regarding the historical points, exam findings, and any diagnostic results supporting the discharge/admit diagnosis, lab results, radiology results, the need for outpatient follow up, a family practitioner, to return to the emergency department if symptoms worsen or persist or if there are any questions or concerns that arise at home. 01/04 17:48 Order name: Type And Screen; Complete Time: 20:21 cp 01/04 17:48 Order name: Basic Metabolic Panel; Complete Time: 19:24 cp 01/04 19:25 Interpretation: Normal except: GLUC 307; BUN 22; GFR 83. cp 01/04 17:48 Order name: CBC with Diff cp 01/04 19:25 Interpretation: Normal except: HGB 8.6; HCT 29.8; MCV 68.2; MCH 19.6; MCHC 28.8; PLT cp 881; RDW 23.1; MPV 7.2. 01/04 17:48 Order name: LFT's; Complete Time: 19:24 cp 01/04 19:25 Interpretation: Normal except: ALK 165; BILIT < 0.2; IBILI, CALC 0.0; ALB 3.1; GLOB cp 3.7; A/G 0.8. 01/04 17:48 Order name: Magnesium; Complete Time: 19:24 cp 01/04 17:48 Order name: PT-INR; Complete Time: 19:24 cp 01/04 17:48 Order name: Troponin HS; Complete Time: 19:24 cp 01/04 17:48 Order name: Ptt, Activated; Complete Time: 19:24 cp 01/04 18:41 Order name: Test, Urine; Complete Time: 19:24 EDMS 01/04 19:32 Order name: Iron Level; Complete Time: 20:21 cp 01/04 19:32 Order name: TIBC; Complete Time: 20:21 cp 01/04 19:32 Order name: TSH; Complete Time: 20:21 cp 01/04 19:32 Order name: T3 Free; Complete Time: 20:21 cp 01/04 17:48 Order name: XRAY Chest (1 view); Complete Time: 19:24 cp 01/04 17:48 Order name: Cardiac monitoring; Complete Time: 18:53 cp 01/04 17:48 Order name: EKG - Nurse/Tech; Complete Time: 18:39 cp 01/04 17:48 Order name: IV Saline Lock; Complete Time: 18:53 cp 01/04 17:48 Order name: Labs collected and sent; Complete Time: 18:53 cp 01/04 17:48 Order name: O2 Per Protocol; Complete Time: 18:15 cp 01/04 17:48 Order name: O2 Sat Monitoring; Complete Time: 18:15 cp 01/04 18:38 Order name: Misc. Order: RECOLLECT TYPE AND SCREEN ; Complete Time: 19:14 sp EC:42 Rate is 76 beats/min. Rhythm is regular. ID interval is normal. QRS interval is normal. cp QT interval is normal. T waves are Inverted in leads aVL, aVR. Interpreted by me. Reviewed by me. Administered Medications: No medications were administered Disposition: 01/05 08:33 Co-signature as Attending Physician, Jaya Hendricks MD I agree with the assessment and maggie plan of care. Disposition Summary: 01/04/25 21:02 Discharge Ordered Notes: Location: Home cp Problem: an acute exacerbation cp Symptoms: have improved cp Condition: Stable cp Diagnosis - Iron deficiency anemia, unspecified cp - Other malaise and fatigue cp Followup: cp - With: Private Physician - When: 1 week - Reason: Recheck today's complaints Discharge Instructions: - Discharge Summary Sheet cp - Iron Deficiency Anemia, Adult cp - Anemia cp - Iron-Rich Diet cp Forms: - Medication Reconciliation Form cp - Antibiotic Education cp - Prescription Opioid Use cp - Patient Portal Instructions cp - Leadership Thank You Letter cp Prescriptions: - Ferrous Sulfate 325 mg (65 mg Iron) Oral tablet - take 1 tablet ORAL route every 12 hours; 60 tablet; Refills: 0, Product cp Selection Permitted Signatures: Dispatcher [employer] Jaya Rivero MD MD cha Pinkerton, Shawna sp Calderon, Audri, RN RN aa5 Jaya Kidd, PA-C PA-C cp Corrections: (The following items were deleted from the chart) 01/04 17:44 17:43 PSHx: tumor removal from stomach; aa5 aa5 17:48 17:48 TYPE AND SCREEN+BB.LAB.BRZ ordered. EDMS EDMS 17:48 17:48 BASIC METABOLIC PANEL+C.LAB.BRZ ordered. EDMS EDMS 17:48 17:48 CBC+H.LAB.BRZ ordered. EDMS EDMS 17:48 17:48 HEPATIC FUNCTION+C.LAB.BRZ ordered. EDMS EDMS 17:48 17:48 MAGNESIUM+C.LAB.BRZ ordered. EDMS EDMS 17:48 17:48 PROTIME (+INR)+COAG.LAB.BRZ ordered. EDMS EDMS 17:48 17:48 Troponin High Sensitivity+C.LAB.BRZ ordered. EDMS EDMS 17:48 17:48 Chest Single View+RAD.RAD.BRZ ordered. EDMS EDMS 17:48 17:48 PTT, ACTIVATED+COAG.LAB.BRZ ordered. EDMS EDMS 18:41 17:48 TEST, SERUM+SC.LAB.BRZ ordered. EDMS EDMS 01/05 17:01 01/04 17:00 Constitutional: Positive for fatigue, Negative for body aches, chills, cp fever, cp 01/05 17:01/04 17:00 Cardiovascular: Negative for chest pain, cp cp 01/05 17:01/04 17:00 Respiratory: Negative for cough, shortness of breath, wheezing, cp cp 01/05 17:01/04 17:00 Abdomen/GI: Negative for abdominal pain, black/tarry stool, rectal cp bleeding, cp 01/05 17:01/04 17:00 Neuro: Positive for weakness, cp cp 01/05 17:01 01/04 17:00 : Negative for urinary symptoms, vaginal bleeding, cp cp 01/05 17:01/04 17:00 Eyes: Negative for injury, pain, redness, and discharge, cp cp 01/05 17:01 01/04 17:00 All other systems are negative, cp cp
[2025-01-04 21:36] LABS: Segmented Neutrophils 68 % (40-80); White Blood Cell Scan SCAN (OK)
[2025-01-04 21:37] LABS: Anisocytosis 2+; Blood Morphology Comment NOTED (NOT SEEN); Microcytosis 1+
[2025-01-04 21:38] LABS: Differential Total Cells Count 100; Hypochromasia 1+; Ovalocytes 1+; Poikilocytosis 2+; Target Cells 1+
[2025-01-05 03:34] VITALS: TEMP 98
[2025-01-05 03:38] VITALS: BP 124/84; O2SAT 97
== END 2025-01-04 21:37 | disposition home or self-care (01) ==
LOC: ER 17:13
DX: D50.9 Iron deficiency anemia, unspecified (principal); R53.83 Other fatigue; R53.81 Other malaise; E11.9 Type 2 diabetes mellitus without complications; Z91.040 Latex allergy status
CPT/HCPCS: 36415; 71045; 80048; 80076; 81025; 82728; 83540; 83735; 84443; 84466; 84481; 84484; 85025; 85610; 85730; 86850; 86900; 86901; 93005; 99284